=== PATIENT | female | born 1960 | race Caucasian/White ===

== ENCOUNTER 2016-06-11 15:22 | Inpatient (IN) | payer OTHER ==
--- NOTE | ~2016-06-11 | US77 ---
[facility] A Service of [facility] RADIOLOGY TEXT RESULTS PATIENT: AYAN ZAPIEN LOCATION: [facility] : 58 UNIT #: [id number] AGE: [address]: TONI MINER MD SEX: F ORDER DR: [id number] [facility] [address] [facility]. [place], [place] [address] [id number] I MR#: [id number] Acc #: [id number] NAME: AYAN ZAPIEN : 1960 SEX: F STUDY DATE/TIME: 06/12/2016 11:21 UNIT: C3A PCU ROOM: [facility] STUDY DESCRIPTION: US Kidney Bilateral Complete Attending Physician: Toni Miner M.D. Ordering Physician: Ifeoma Abernathy M.D. Primary Care Physician: Rodrigo Pak M.D. MEDICAL IMAGING REPORT This report is preliminary unless electronic signature is present EXAM Bilateral renal ultrasound, 06/12/2016. HISTORY 56-year-old female hospital inpatient with acute kidney injury. TECHNIQUE Dawson-scale ultrasound imaging of both kidneys and urinary bladder. COMPARISON Noncontrast CT abdomen/pelvis yesterday. FINDINGS Diffusely echo-dense renal parenchyma is noted which may be acute or chronic. This is most frequently associated with medical renal disease. There is no evidence of urinary obstruction. No visible nephrolithiasis, renal mass or perinephric fluid collection. Renal length measures at least 9.4 cm on the right and about 12.1 cm on the left. The urinary bladder is negative. IMPRESSION Diffusely echogenic renal parenchyma bilaterally which may be associated with acute or chronic medical renal disease. There is no evidence of urinary obstruction. Dictated by... Ramirez Perez M.D. THIS IS AN ELECTRONICALLY VERIFIED REPORT Ramirez Perez M.D. at 06/13/2016 8:40 AM [facility] A Service of [facility] RADIOLOGY TEXT RESULTS PATIENT: AYAN ZAPIEN LOCATION: [facility] : 58 UNIT #: [id number] AGE: [address]: TONI MINER MD SEX: F ORDER DR: LE/wendie TD: 06/12/2016 19:32 JOB #: [id number] MEDICAL IMAGING REPORT COPY
--- NOTE | ~2016-06-11 | EKG ---
PATIENT: AYAN ZAPIEN UNIT #: [id number] Ventricular Rate: 85 BPM Atrial Rate: 85 BPM P-R Interval: 174 ms QRS Duration: 72 ms Q-T Interval: 370 ms QTC Calculation(Bezet): 440 ms P [place]: 50 degrees Calculated R [place]: 55 degrees Calculated T [place]: 58 degrees Diagnosis Line: Normal sinus rhythm Diagnosis Line: Low voltage QRS Diagnosis Line: Borderline ECG Diagnosis Line: When compared with ECG of 06-JUN-2015 20:40, Diagnosis Line: ST no longer depressed in Inferior leads Diagnosis Line: T wave inversion no longer evident in Inferior Diagnosis Line: leads Diagnosis Line: Confirmed by TRISTA LOONEY MD ([id number]) on Diagnosis Line: 06/12/2016 10:45:29 PM INTERPRETING MD: JENY
--- NOTE | ~2016-06-11 | TOC ---
Unit #: [id number] #: [id number] Patient: AYAN ZAPIEN [id number] [facility]. [place], [place] [address] [id number] I MR#: [id number] NAME: AYAN ZAPIEN. ROOM: 240 Age: 56 Sex: F Admission Date: 06/11/2016 : 1960 Attending Physician: Ifeoma Abernathy M.D. Primary Care Physician: Rodrigo Pak M.D. TRANSFER OF CARE SUMMARY ADDENDUM PRINCIPAL DIAGNOSES 1. Right retroperitoneal hematoma following right renal biopsy. 2. Acute blood loss anemia status post transfusion of four units of packed RBCs. 3. Hypertension, uncontrolled. 4. Membranoproliferative glomerulonephritis. 5. Acute tubular necrosis. 6. Constipation. TOWER HAND Dr. Sunshine, Urology. PROCEDURES 1. Right renal biopsy on June 17, 2016. 2. Right renal angiogram, on June 17, 2016, without evidence of pseudoaneurysm or AV fistula. Diminished perfusion in the right kidney noted. 3. CT scan of abdomen and pelvis, on June 17, 2016, with a large retroperitoneal hematoma measuring 8.7 x 3.8 cm. There is free fluid within the pelvis noted. Small bilateral pleural effusions, right greater than left, noted. 4. KUB, on June 20, 2016, with gaseous distension of the colon greatest in the transverse colon. Prior cholecystectomy noted. 5. Placement of tunnel catheter. HOSPITAL COURSE Following last dictation, later that day, the patient had a repeat hemoglobin done given she had just undergone a renal biopsy. This hemoglobin was found to be significantly low at 6.6 and the patient's hypotension, as noted, in last dictation, was likely secondary to acute hemorrhage. She was emergently sent for CT scan of the abdomen and pelvis in Radiology and subsequently underwent an angiogram of the renal system but did not require any intervention. Following transfusion, the patient's hemoglobin has remained relatively stable, though she has required another two units likely secondary to a combination of still her large retroperitoneal hematoma in combination with her chronic kidney disease. Blood pressure since that time has remained stable and the patient was transferred to med/surg. The patient has done well otherwise. Blood pressure has been, for the most part, reasonably well controlled. Initial renal biopsy from [place] is indicating a membranoproliferative glomerulonephritis in Unit #: [id number] #: [id number] Patient: AYAN ZAPIEN addition to AT. Further testing for an autoimmune source of her renal disease is pending including a viral hepatitis panel and an anti-double stranded DNA. At this point, the patient is going to continue on intermittent hemodialysis as an outpatient per Dr. Dia. I will note the patient has completed her course of treatment for her colitis and her diarrhea has resolved and she has completed her antibiotic course for her pneumonia. She is significantly weak and will be followed by home health for physical and occupational therapy. DISCHARGE CONDITION Stable. DISCHARGE STATUS Discharged to home with home health for PT, OT and blood pressure monitoring. DISCHARGE MEDICATIONS 1. Flonase 0.05% nasal spray two sprays per nostril daily. 2. Zoloft 100 mg b.i.d. 3. Zyrtec 10 mg daily. 4. Benadryl 25 mg each evening. 5. Xanax 0.5 mg p.o. t.i.d. p.r.n. for anxiety. 6. Norvasc 10 mg p.o. daily. 7. Lasix 40 mg one and one-half tablets p.o. b.i.d. 8. Lipitor 20 mg at bedtime. 9. Clonidine 0.3 mg p.o. t.i.d. 10. Hydralazine 100 mg p.o. t.i.d. 11. Lortab 7.5/325 mg one tablet p.o. q.4 hours p.r.n. for pain. Number given-25. 12. PhosLo 667 mg two tablets p.o. t.i.d. with meals. 13. Calcium carbonate plus vitamin D 600 mg p.o. b.i.d. DISCHARGE INSTRUCTIONS 1. The patient was instructed to follow a Heart Healthy, low salt diet. 2. She can increase her activity as tolerated. 3. She will continue hemodialysis at [facility]. She will be Monday, , Monday at 7 a.m. with the first treatment on June 23 at 6:30 a.m. 4. She is to refrain from any tobacco use. FOLLOWUP The patient will follow up with Dr. Dia as instructed. We will further evaluate electron microscopy results with Dr. Dia and further discuss whether she needs immunosuppression given she may have an underlying autoimmune disorder. Time spent on discharge today-33 minutes. Dictated by... Ifeoma Abernathy M.D. SORIN/luis TD: 06/23/2016 06:25 JOB #: [id number] Unit #: [id number] #: [id number] Patient: AYAN ZAPIEN TRANSFER OF CARE SUMMARY X Ifeoma Abernathy MD TRANSFER OF CARE SUMMARY
--- NOTE | ~2016-06-11 | A ---
[facility] Nutrition Therapy DATE: 06/21/16 Patient: AYAN ZAPIEN Physician: [id number] Address: [address] [place] [address] Room/Bed: [address] [place] [address], Zip: [place] [address] Admit Date: 06/11/16 Date of : 58 Height: 5 3 Weight: 195 88.7 NUTRITIONAL ASSESSMENT: REASON: Seen due to length of stay Admitting Dx: 56 y/o female admitted with ELI and espinoza colitis PMH: HTN, LE edema, chronic back pain, migraines, kiko Anthropometrics: Ht: 63", admission wt: 175 lbs, current wt: 195 lbs?, BMI: 31 Labs: Na 133, Creat 3.3, GFR 15.3, Phos 2.8 (06/19) Meds: Phoslo, Procrit, Os Griffin + D, Zofran, Furosemide I/O & Bowel function: LBM 06/20 Skin Integrity: Tunnel cath R chest, BUE bruising, 1-2+ edema noted Assessment: Chart reviewed, events noted. RD assessing due to length of stay, patient with ELI requiring HD, to get HD tomorrow. Outpatient HD arrangements have been completed. Weights have ranged from 175-219 lbs during admission. Decreased oral intake noted on H&P, patient is on a renal diet. Patient not in room at time of RD visit, Dr. Abernathy noted in chart yesterday that the patient is eating, unsure of exact current PO intake. Patient does have increased nutrient needs r/t hemodialysis. Also note that CT showed espinoza colitis at admission. Please see RD recs below, will follow. RD provided renal/low phos diet education materials to patient on 06/15/16 Dx: Increased nutrient needs r/t metabolic demand AEB on hemodialysis. Intervention: Nepro BID? Monitoring, Evaluation and Goals: 1. Adequate oral intake > 50-75% of meals. 2. Gradual weight loss towards a healthy BMI range while preventing micro/macronutrient deficiencies. 3. Labs WNL. Monitor: Per protocol, criteria to determine if above goals met Recommendations: [facility] Nutrition Therapy DATE: 06/21/16 Patient: AYAN ZAPIEN Physician: MONSERRAT Address: [address] [place] [address] HERVE Room/Bed: [address] [place] [address], Zip: [place] [address] Admit Date: 06/11/16 Date of : 58 Height: 5 3 Weight: 195 88.7 1. Continue renal diet, if patient's PO intake is inadequate consider changing diet to regular to liberalize food choices; patient's k/phos have been WNL. Fluids per MD noting hyponatremia. 2. If PO intake is < 50% of meals please order Nepro shakes BID to help meet increased protein needs. Reinforce increased protein needs prior to discharge as the patient will require outpatient HD. 3. Check Phos with next lab draw. 4. Monitor weight. 5. Patient previously given diet education materials on renal/low phos diet. RD will follow hospital course Mild nutrition risk Respectfully, Yoana Guidry RD, LD Food and Nutrition[facility] Services [facility] cc: client file
--- NOTE | ~2016-06-11 | CT134 ---
[facility] A Service of [facility] & [facility] RADIOLOGY TEXT RESULTS PATIENT: AYAN ZAPIEN LOCATION: C2A 240-01 : 58 UNIT #: [id number] AGE: [address]: Ifeoma Abernathy MD SEX: F ORDER DR: [id number] [facility]. [place], [place] [address] [id number] I MR#: [id number] Acc #: [id number] NAME: AYAN ZAPIEN : 1960 SEX: F STUDY DATE/TIME: 06/17/2016 8:17 UNIT: [facility] ROOM: 240 STUDY DESCRIPTION: CT Guide Attending Physician: Ifeoma Abernathy M.D. Ordering Physician: Justa Dia M.D. Primary Care Physician: Rodrigo Pak M.D. MEDICAL IMAGING REPORT This report is preliminary unless electronic signature is present REVISED REPORT SEE ADDENDUM EXAM CT guided renal biopsy INDICATIONS Acute renal failure. Patient has a history of nephrotic syndrome. PROCEDURE This CT exam was performed with one or more of the following radiation dose reduction techniques: Automatic exposure control, adjustment of mA and/or kV according to patient size, and iterative reconstruction. The risks, benefits, and alternatives to the procedure were explained to the patient, and signed, informed consent was obtained. She was placed prone on the CT scanner gantry, preliminary CT scan was performed through the region of interest and appropriate site overlying the patient's right kidney was selected, the overlying skin was marked and the patient was prepped and draped in the usual sterile fashion. Of note, the patient's kidneys appear hyperattenuating likely reflecting chronic medical renal disease. Skin and subcutaneous tissues were anesthetized with buffered lidocaine. Anesthesia needle was left in place. Repeat CT scan confirmed appropriate position of the needle. At this point, a 17-gauge coaxial needle was advanced into the inferior pole of the right kidney. Final CT scan confirmed appropriate position of the needle within the periphery of the kidney. At this point, 3 core samples were obtained using an 18-gauge BioPince biopsy gun. Needle was then removed and manual pressure was applied until hemostasis was obtained. The patient tolerated the procedure well. There were no immediate complications, however, the patient subsequently became hypotensive and a repeat CT scan did show a perinephric hematoma. She underwent right renal angiogram, which was dictated separately. [facility] A Service of [facility] RADIOLOGY TEXT RESULTS PATIENT: AYAN ZAPIEN LOCATION: [facility] : 58 UNIT #: [id number] AGE: [address]: Ifeoma Abernathy MD SEX: F ORDER DR: CAPRI Technically successful core-needle biopsy of the patient's right kidney. CT was used during the procedure and permanent images were saved. Dictated by... Christina Whitney M.D. THIS IS AN ELECTRONICALLY VERIFIED REPORT Christina Whitney M.D. at 06/21/2016 9:17 AM AFF/psc TD: 06/19/2016 20:12 JOB #: [id number] ADDENDUM Please note she did receive conscious sedation consisting of 4 mg of Versed and 150 mcg fentanyl, and continuous monitoring was provided throughout the procedure JOB #: [id number] Dictated by... Christina Whitney M.D. THIS IS AN ELECTRONICALLY VERIFIED REPORT Christina Whitney M.D. at 06/30/2016 1:16 PM AFF/psc TD: 06/19/2016 20:33 JOB #: [id number] CC: Sovera/invision Please Delete MEDICAL IMAGING REPORT COPY
--- NOTE | ~2016-06-11 | XA93 ---
[facility] A Service of [facility] & [facility] RADIOLOGY TEXT RESULTS PATIENT: AYAN ZAPIEN LOCATION: C2A 240-01 : 58 UNIT #: [id number] AGE: [address]: Ifeoma Abernathy MD SEX: F ORDER DR: [id number] [facility] [address] [facility]. [place], [place] [address] [id number] I MR#: [id number] Acc #: [id number] NAME: AYAN ZAPIEN : 1960 SEX: F STUDY DATE/TIME: 06/20/2016 15:24 UNIT: C2A ROOM: 240 STUDY DESCRIPTION: XA CVC Tunneled WO Pump/Port Attending Physician: Ifeoma Abernathy M.D. Ordering Physician: Ifeoma Abernathy M.D. Primary Care Physician: Rodrigo Pak M.D. MEDICAL IMAGING REPORT This report is preliminary unless electronic signature is present EXAM Tunneled dialysis catheter insertion, 06/20/2016. HISTORY IV access needed, renal failure. PROCEDURE Using real-time ultrasound guidance, full standard sterile technique including sterile preparation, barrier draping, caps, gowns, gloves and masks; right internal jugular vein was accessed with real-time sterile ultrasound guidance both to guide venous access and confirm vessel patency. Using Seldinger technique, the jugular vein was accessed and the tract was dilated. A peel-away sheath was inserted. Tunnel was then created from the right upper chest following local anesthesia to the venotomy site, and the dialysis catheter pulled through the tunnel and then advanced via the peel-away sheath. The venotomy site was closed with a deep fascial suture and n-butyl cyanoacrylate flow. The hub of the catheter was stitched in place. There were no complications and the patient tolerated the procedure well. The catheter was flushed with saline and packed with heparin solution. There were no complications. Total fluoro time 0.4 minutes, single fluoroscopic spot image. IMPRESSION Successful ultrasound and fluoroscopically guided insertion of a tunneled right IJ dialysis catheter without complication. Dictated by... Clarence Scanlon M.D. THIS IS AN ELECTRONICALLY VERIFIED REPORT Clarence Scanlon M.D. at 06/27/2016 5:[address] [facility] A Service of [facility] & [facility] RADIOLOGY TEXT RESULTS PATIENT: AYAN ZAPIEN LOCATION: [place] [address] : 58 UNIT #: [id number] AGE: [address]: Ifeoma Abernathy MD SEX: F ORDER DR: LEONA/chilo TD: 06/25/2016 11:19 JOB #: [id number] MEDICAL IMAGING REPORT COPY
--- NOTE | ~2016-06-11 | CO ---
Unit #: [id number] #: [id number] Patient: AYAN ZAPIEN [id number] [address] [id number] I MR#: [id number] NAME: AYAN ZAPIEN ROOM: 303 Age: 56 Sex: F Admission Date: 06/11/2016 : 1960 Attending Physician: Ifeoma Abernathy M.D. Primary Care Physician: Rodrigo Pak M.D. Consultation Date: 06/18/2016 CONSULTATION REPORT REASON FOR CONSULTATION Renal trauma; right renal biopsy. HISTORY OF PRESENT ILLNESS Ms. Zapien is a 56-year-old female with a history of hypertension and migraines who presented to the ER with nausea, vomiting and diarrhea. She was found to have acute kidney injury that progressed and ultimately required hemodialysis. She has been managed by the nephrology team. Ultimately, she underwent right renal biopsy. She underwent this biopsy on June 17, 2016. Postoperatively she developed hypotension, and her hemoglobin was noted to be markedly low. She was taken emergently to the IR suite where angiogram was performed, but they did not find an acute bleed that required embolization. She has been managed expectantly since that time. She is currently on bedrest. PAST MEDICAL HISTORY 1. Acute kidney injury, hemodialysis dependent. 2. Pancolitis. 3. Anion gap metabolic acidosis. 4. Pneumonia. 5. Hypocalcemia. 6. Vitamin D deficiency. 7. History of migraines. 8. History of hypertension. 9. Chronic back pain. PAST SURGICAL HISTORY 1. Hysterectomy. 2. Cholecystectomy. 3. Tonsillectomy. 4. Right shoulder surgery. 5. Resection of hepatitic cyst. HOME MEDICATIONS 1. Benadryl. 2. Norvasc. 3. Aspirin. 4. Benazepril. 5. Hydrochlorothiazide. 6. Lipitor. 7. Baclofen. 8. Compazine. 9. Lortab. Unit #: [id number] #: [id number] Patient: AYAN ZAPIEN 10. Xanax. 11. Sertraline. PHYSICAL EXAMINATION VITAL SIGNS: Temp 99.7, pulse 80 to 100, BP 104-145/60-98. Satting well on room air. Oliguric. GENERAL: Awake and alert. No apparent distress. Oriented x3. HEENT: Pupils are equal, round and responsive to light. Head atraumatic. NECK: Supple. RESPIRATORY: Normal effort. No use of accessory muscles. ABDOMEN: Soft, normal appearing. : Becerra in place. Urine clear. DIAGNOSTIC STUDIES LABS: Creatinine 5.5. White blood cell count 13.9, hemoglobin 8. ASSESSMENT This is a 56-year-old female who developed hypotension and change in mental status after right renal biopsy. Per the patient, angiography was performed and did not demonstrate arterial bleeding that required embolization. A urology consultation was requested to assist with management of renal trauma. RECOMMENDATION/PLAN 1. Recommend bedrest for 48 hours. 2. Continue Becerra catheter. 3. Continue to trend hemoglobin. 4. Will continue to follow. Dictated by... Dl Burnette M.D. XOCHITL/saad TD: 06/18/2016 14:41 JOB #: [id number] CONSULTATION REPORT X X CONSULTATION REPORT
--- NOTE | ~2016-06-11 | XA59 ---
[facility] A Service of [facility] & [facility] RADIOLOGY TEXT RESULTS PATIENT: AYAN ZAPIEN LOCATION: A 240-01 : 58 UNIT #: [id number] AGE: [address]: Ifeoma Abernathy MD SEX: F ORDER DR: [id number] [facility]. [place], [place] [address] [id number] I MR#: [id number] Acc #: [id number] NAME: AYAN ZAPIEN : 1960 SEX: F STUDY DATE/TIME: 06/17/2016 8:17 UNIT: [facility] ROOM: [facility] STUDY DESCRIPTION: XA BX Perc Renal Attending Physician: Ifeoma Abernathy M.D. Ordering Physician: Justa Dia M.D. Primary Care Physician: Rodrigo Pak M.D. MEDICAL IMAGING REPORT This report is preliminary unless electronic signature is present EXAM XA BX perc renal HISTORY Acute renal failure. Patient has a history of nephrotic syndrome. FINDINGS Please see CT GUIDE report for combined text results. Dictated by... Christina Whitney M.D. THIS IS AN ELECTRONICALLY VERIFIED REPORT Christina Whitney M.D. at 06/21/2016 9:22 AM AFF/psc TD: 06/19/2016 20:21 JOB #: [id number] MEDICAL IMAGING REPORT COPY
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
--- NOTE | ~2016-06-11 | CT4 ---
[facility] A Service of [facility] RADIOLOGY TEXT RESULTS PATIENT: AYAN ZAPIEN LOCATION: [facility] : 58 UNIT #: [id number] AGE: [address]: Ifeoma Abernathy MD SEX: F ORDER DR: [id number] [facility] [address] [place], [place] [address] [id number] I MR#: [id number] Acc #: [id number] NAME: AYAN ZAPIEN. : 1960 SEX: F STUDY DATE/TIME: 06/11/2016 18:17 UNIT: A PCU ROOM: [facility] STUDY DESCRIPTION: CT Abd and Pelv Wo Cont Attending Physician: Sarah Miner M.D. Ordering Physician: Santy Meyers M.D. Primary Care Physician: Rodrigo Pak M.D. MEDICAL IMAGING REPORT This report is preliminary unless electronic signature is present EXAM CT of abdomen and pelvis with oral contrast and without IV contrast. DATE OF EXAM 06/11/2016 HISTORY Nausea, diarrhea and cramping for 2 weeks. TECHNIQUE NOTE: This CT exam was performed with one or more of the following radiation dose reduction techniques: automatic exposure control, adjustment of mA and/or kV according to patient size, and iterative reconstruction. FINDINGS CT abdomen and pelvis was performed with oral contrast and without IV contrast. CT ABDOMEN: There is a very small left pleural effusion and there is mild subsegmental atelectasis in the posterior left lower lobe, inferior lingula and medial right middle lobe. Mild diffuse wall thickening of the colon. No bowel dilatation. The liver, spleen, pancreas, kidneys, and adrenal glands are unremarkable. No ascites. Normal caliber abdominal aorta. No adenopathy. CT PELVIS: Small amount of free fluid in the pelvis. Mild diffuse wall thickening of the sigmoid colon and rectum. Mild sigmoid diverticulosis. No bowel dilatation. No loculated fluid collection. Urinary bladder is normal. Hysterectomy. IMPRESSION [facility] A Service of [facility] RADIOLOGY TEXT RESULTS PATIENT: AYAN ZAPIEN LOCATION: C3A : 58 UNIT #: [id number] AGE: [address]: Ifeoma Abernathy MD SEX: F ORDER DR: 1. Mild diffuse wall thickening of the colon and rectum suggesting mild diffuse infectious or inflammatory proximal colitis. 2. No bowel obstruction. 3. Minimal free fluid in the pelvis. 4. Normal appendix. 5. Very small left pleural effusion with mild subsegmental atelectasis in both lung bases. Dictated by... Mukund Jaramillo M.D. THIS IS AN ELECTRONICALLY VERIFIED REPORT Mukund Jaramillo M.D. at 06/13/2016 3:04 PM SALOME/christian TD: 06/11/2016 21:28 JOB #: [id number] MEDICAL IMAGING REPORT COPY
--- NOTE | ~2016-06-11 | HP ---
Unit #: [id number] #: [id number] Patient: AYAN ZAPIEN [id number] [address] [place], [place] [address] [id number] MR#: [id number] NAME: AYAN ZAPIEN. ROOM: 303 Age: 56 Sex: F Admission Date: 06/11/2016 : 1960 Attending Physician: Sarah Miner M.D. Primary Care Physician: Rodrigo Pak M.D. HISTORY AND PHYSICAL CHIEF COMPLAINT Nausea, vomiting, and diarrhea for two weeks. HISTORY OF PRESENT ILLNESS The patient is a 56-year-old female, with a past medical history of migraine, hypertension, lower extremity edema, and chronic back pain presented to the emergency room with the nausea, vomiting, and diarrhea for the last two weeks. The patient was having nausea and vomiting for the last two weeks with diarrhea and the blood in the stool. The patient was told to see GI by the primary care physician and has been unable to followup. She has tried (1) and Compazine but without any relief. The patient has decreased oral intake also along with the nausea and vomiting. The patient also complains of subjective fevers and denies any chills. PAST MEDICAL HISTORY 1. History of hypertension. 2. Migraines. 3. Lower extremity edema. 4. Chronic back pain. PAST SURGICAL HISTORY 1. Hysterectomy. 2. Cholecystectomy. 3. Tonsillectomy. 4. Right shoulder surgery. 5. Hepatic tumor, cyst removed. ALLERGIES Imitrex, Bystolic, morphine, and erythromycin. HOME MEDICATIONS She is on: 1. Benadryl 2. Norvasc 3. Aspirin 4. Benazepril 5. Hydrochlorothiazide 6. Lipitor 7. Baclofen 8. Compazine 9. Lortab 10. Xanax 11. Sertraline Unit #: [id number] #: [id number] Patient: AYAN ZAPIEN 12. Mucinex 13. Potassium 14. Calcium SOCIAL HISTORY She smokes a pack of cigarettes daily and denies any alcohol or illicit drug abuse. FAMILY HISTORY Father has drug abuse in the family. REVIEW OF SYSTEMS Fourteen point review of systems was performed and only pertinent positive as described above, and others are negative. PHYSICAL EXAMINATION GENERAL: The patient is lying on the bed, not in acute distress. VITALS: Temperature 98.5, pulse rate 88, respiratory 16, and blood pressure 220/100, satting 100% at room air. HEENT: Head: Atraumatic and normocephalic. Pupils equal, round, reactive to light and accommodation. Dry mucous membranes. NECK: Supple. No jugular venous distention. LUNGS: Clear to auscultation bilaterally, no rhonchi, and no wheezing. HEART: Regular rate and rhythm. ABDOMEN: Soft, positive bowel sounds. Lower abdominal tenderness bilaterally. EXTREMITIES: No cyanosis, no clubbing. NEURO: Awake, alert, and oriented, no gross motor deficit. PSYCH: Mood and affect are appropriate. DIAGNOSTIC STUDIES LABORATORY DATA: Glucose 93, BUN 73, creatinine of 10.7, sodium 131, potassium 3.9, chloride 106, bicarb 14, calcium 7.2, total protein 5.7, albumin 2.2. AST 16, ALT 11, alkaline phosphatase 100, lipase 84. White blood count 14.7, hemoglobin 12.3, hematocrit 36.5, platelets 218, neutrophils 77.3. IMAGING: CT of the abdomen shows mild espinoza colitis. ASSESSMENT/PLAN 1. Espinoza colitis. 2. Acute kidney injury. 3. Hypertension, uncontrolled. 4. Nausea, vomiting, and diarrhea. Plan to admit the patient to the inpatient telemetry, continue with the IV antibiotics with Rocephin and Flagyl, and the patient will have renal consult and continue with IV replacement 150 mL per hour, and repeat the labs again in the morning, and further recommendations to follow. Dictated by Tano Elliott TD: 06/12/2016 10:38 Unit #: [id number] #: [id number] Patient: AYAN ZAPIEN JOB #: [id number] HISTORY AND PHYSICAL X X HISTORY AND PHYSICAL
--- NOTE | ~2016-06-11 | CR63 ---
[facility] A Service of [facility] RADIOLOGY TEXT RESULTS PATIENT: AYAN ZAPIEN LOCATION: [facility] 303- : 58 UNIT #: [id number] AGE: [address]: Ifeoma Abernathy MD SEX: F ORDER DR: [id number] [facility] [address] [place], [place] [address] [id number] I MR#: [id number] Acc #: [id number] NAME: AYAN ZAPIEN : 1960 SEX: F STUDY DATE/TIME: 06/15/2016 14:37 [facility] ROOM: 303 STUDY DESCRIPTION: CR Chest 2 View Attending Physician: Ifeoma Abernathy M.D. Ordering Physician: Ifeoma Abernathy M.D. Primary Care Physician: Rodrigo Pak M.D. MEDICAL IMAGING REPORT This report is preliminary unless electronic signature is present EXAM PA and lateral chest DATE 06/15/2016 at 14:37 HISTORY Shortness of breath and cough since June 11, 2016. Possible pneumonia. COMPARISON AP portable chest 06/06/2015 FINDINGS Airspace disease is present in the bilateral lower lobes, right slightly greater than left. There are probable trace layering bilateral pleural effusions. Upper lung zones appear relatively well-aerated. Stable heart size within normal limits. Right neck approach dual-lumen catheter distal tip extends to the upper right atrial level. No pneumothorax is visible. IMPRESSION 1. Right greater than left bibasilar airspace disease, corresponding to the supplied clinical history of suspected possible pneumonia. Radiographic followup to document resolution is recommended. 2. Suspected small layering bilateral pleural effusions. Dictated by... Albania Almeida M.D. THIS IS AN ELECTRONICALLY VERIFIED REPORT Albania Almeida M.D. at 06/16/2016 2:40 PM [facility]/to TD: 06/15/2016 17:32 [facility] A Service of [facility] RADIOLOGY TEXT RESULTS PATIENT: AYAN ZAPIEN LOCATION: [facility] 303-01 : 58 UNIT #: [id number] AGE: [address]: Ifeoma Abernathy MD SEX: F ORDER DR: JOB #: [id number] MEDICAL IMAGING REPORT COPY
--- NOTE | ~2016-06-11 | CT4 ---
[facility] A Service of [facility] RADIOLOGY TEXT RESULTS PATIENT: AYAN ZAPIEN LOCATION: [facility] 240-01 : 58 UNIT #: [id number] AGE: [address]: Ifeoma Abernathy MD SEX: F ORDER DR: [id number] [facility] [address] [facility]. [place], [place] [address] [id number] I MR#: [id number] Acc #: [id number] NAME: AYAN ZAPIEN : 1960 SEX: F STUDY DATE/TIME: 06/17/2016 15:30 UNIT: C3A PCU ROOM: 303 STUDY DESCRIPTION: CT Abd and Pelv Wo Cont Attending Physician: Ifeoma Abernathy M.D. Ordering Physician: Ifeoma Abernathy M.D. Primary Care Physician: Rodrigo Pak M.D. MEDICAL IMAGING REPORT This report is preliminary unless electronic signature is present EXAM CT of the abdomen and pelvis without contrast HISTORY Ms. Zapien is a 56-year lady who underwent a right renal biopsy today. She became hypotensive several hours after the biopsy and dropped her hemoglobin to 6.6. She has been referred for evaluation for possible perinephric hemorrhage. TECHNIQUE Axial CT images were obtained from the dome of the diaphragm through the symphysis pubis. No oral or intravenous contrast material was administered. This CT exam was performed with one or more of the following radiation dose reduction techniques: automatic control, adjustment of mA and/or kV according to patient size, and iterative reconstruction. FINDINGS Patient is noted to have bilateral pleural effusions right greater than left, the right pleural effusion is new when compared to an exam from 06/11/2016 and the left pleural effusion has increased. This patient has a large retroperitoneal hematoma. This measures up to 8.7 x 3.8 cm. Patient is also noted to have some free fluid within the pelvis although it is low in attenuation and may simply reflect some simple fluid. Additional small amount of free fluid is seen adjacent to the liver. Liver is unremarkable. Gallbladder is surgically absent. Calcified granulomata are seen within the spleen. There is a small hiatal hernia proximal small bowel is within normal limits as is the pancreas. Left kidney is slightly hyperdense. Clinical significance is uncertain but certainly correlation with the patient's biopsy results is suggested. There is atherosclerotic involvement of the abdominal aorta which [facility] A Service of [facility] RADIOLOGY TEXT RESULTS PATIENT: AYAN ZAPIEN LOCATION: [facility] [address] : 58 UNIT #: [id number] AGE: [address]: Ifeoma Abernathy MD SEX: F ORDER DR: continues into the iliac vessels. Becerra catheter is present within the urinary bladder. Patient has colonic diverticulosis without any evidence of diverticulitis. Patient has extensive body wall edema which has increased when compared to the prior study. Review of bony windows does not demonstrate any aggressive osseous abnormalities. There is some subcutaneous gas seen within the right flank posteriorly related to recent biopsy site. There is discogenic degenerative disease most pronounced at L2-L3. IMPRESSION 1. This patient has a large retroperitoneal hematoma measuring up to 8.7 x 3.8 cm. This is secondary to today's biopsy. This was discussed with Dr. Abernathy immediately following the CT scan and at this point, we will plan on an angiogram to assess for pseudoaneurysm or arteriovenous fistula. 2. Patient is noted to have some free fluid within the pelvis, particularly along the right pelvic sidewall. This appears to be simple fluid but certainly a hemorrhagic component should be suspected. 3. Small bilateral pleural effusions right greater than left. The right pleural effusion is new when compared to prior study. Left pleural effusion has increased. 4. Both kidneys are hyperdense which may reflect underlying chronic medical renal disease. 5. Please see the body of the report for any other additional incidental findings. Dictated by... Christina Whitney M.D. THIS IS AN ELECTRONICALLY VERIFIED REPORT Christina Whitney M.D. at 06/21/2016 4:44 PM AFF/rnr TD: 06/18/2016 01:28 JOB #: [id number] MEDICAL IMAGING REPORT COPY
--- NOTE | ~2016-06-11 | XA75 ---
[facility] A Service of [facility] RADIOLOGY TEXT RESULTS PATIENT: AYAN ZAPIEN LOCATION: C3A - : 58 UNIT #: [id number] AGE: [address]: Ifeoma Abernathy MD SEX: F ORDER DR: [id number] [facility] [address] [place], [place] [address] [id number] I MR#: [id number] Acc #: [id number] NAME: AYAN ZAPIEN : 1960 SEX: F STUDY DATE/TIME: 06/14/2016 14:18 UNIT: C3A PCU ROOM: 303 STUDY DESCRIPTION: XA CVC Non-Tunnel Attending Physician: Ifeoma Abernathy M.D. Ordering Physician: Justa Dia M.D. Primary Care Physician: Rodrigo Pak M.D. MEDICAL IMAGING REPORT This report is preliminary unless electronic signature is present EXAM Shiley catheter placement with ultrasound and fluoroscopic guidance, 06/14/2016 HISTORY Dialysis needed. TECHNIQUE The procedure was explained the patient including risks, benefits and complications. Informed consent was obtained and a formal time-out procedure was utilized. Full barrier sterile technique was employed via standard protocol. Using full barrier sterile technique and following local anesthesia with 1% Xylocaine, the right internal jugular vein was punctured with ultrasound guidance. Ultrasound was used to confirm vessel patency which was confirmed and permanent ultrasound images were recorded. An 0.035 guidewire was passed through the micropuncture sheath and the tract was dilated. A double lumen Shiley catheter was then placed over the guidewire with the tip positioned in the upper right atrium. The line was sutured in place with 2-0 silk sutures and a sterile dressing was applied. Total fluoroscopy time 0.1 minute. 1 spot film obtained. IMPRESSION Successful placement of a Shiley catheter via the right internal jugular vein with ultrasound and fluoroscopic guidance. Catheter tip is in satisfactory position. Dictated by... Lincoln Mac M.D. THIS IS AN ELECTRONICALLY VERIFIED REPORT Lincoln Mac M.D. at 06/15/2016 4:42 PM [facility] A Service of [facility] RADIOLOGY TEXT RESULTS PATIENT: AYAN ZAPIEN LOCATION: [facility] 303-01 : 58 UNIT #: [id number] AGE: [address]: Ifeoma Abernatyh MD SEX: F ORDER DR: CAREN/christin TD: 06/14/2016 21:22 JOB #: [id number] MEDICAL IMAGING REPORT COPY
--- NOTE | ~2016-06-11 | XA25 ---
[facility] A Service of [facility] RADIOLOGY TEXT RESULTS PATIENT: AYAN ZAPIEN LOCATION: C2A 240-01 : 58 UNIT #: [id number] AGE: [address]: Ifeoma Abernathy MD SEX: F ORDER DR: [id number] [facility] [address] [facility]. [place], [place] [address] [id number] I MR#: [id number] Acc #: [id number] NAME: AYAN ZAPIEN : 1960 SEX: F STUDY DATE/TIME: 06/17/2016 16:26 UNIT: A ROOM: 240 STUDY DESCRIPTION: XA Angio Renal Unilateral W WO Attending Physician: Ifeoma Abernathy M.D. Ordering Physician: Ifeoma Abernathy M.D. Primary Care Physician: Rodrigo Pak M.D. MEDICAL IMAGING REPORT This report is preliminary unless electronic signature is present EXAM Right renal angiogram Ms. Zapien is a 56-year-old lady who underwent a renal biopsy on June 17, 2016. Initially following the procedure she did well. However, shortly after the procedure she subsequently developed hypotension requiring a MET team alert. Subsequent hemoglobin was found to be 6.6, which had diminished from her Preprocedural value of over 8. She has subsequently been referred for renal angiogram. The procedure was explained to the patient including risks, potential complications and history of alternative forms of treatment. Informed consent was obtained prior to initiating the procedure. A formal time-out procedure was performed. Using all elements of maximal sterile barrier technique including hand hygiene, caps, sterile gowns and gloves and masks. The right groin was prepped with 2% Chlorhexidine for continuous antiseptic and covered with a large sterile sheet. Real-time sterile ultrasound guidance was used to localize the common femoral artery which was found to be patent. Hard copy ultrasound image was obtained after local anesthesia with 1% Xylocaine. The artery was punctured using real-time sterile ultrasound guidance. An 0.018 guidewire was advanced into the right common femoral artery. Micropuncture sheath was placed and a J-wire was advanced into the aorta. 5-Croatian sheath was placed. At this point a C2 catheter was advanced over the wire and was used to select the right renal artery. Right renal angiogram was performed. This patient is noted to have diminished parenchymal enhancement of the right kidney. There is no evidence of stenosis. No pseudoaneurysm or arteriovenous fistula was identified. Again however, opacification of the right kidney was very limited, suggesting chronic medical renal disease. The catheter was STS. [facility] A Service of [facility] RADIOLOGY TEXT RESULTS PATIENT: AYAN ZAPIEN LOCATION: C2A 240-01 : 58 UNIT #: [id number] AGE: [address]: Ifeoma Abernathy MD SEX: F ORDER DR: subsequently advanced more distally into the right renal artery to select a branch supplying the inferior pole of the right kidney, again an angiogram was performed and again there was no evidence of pseudoaneurysm or arteriovenous fistula. Patient does have some diminished enhancement in particular overlying the inferior pole of the right kidney likely reflecting adjacent hematoma. At this point the catheter was removed. Angiogram was performed through the sheath which showed a patent common femoral artery with no evidence of stenosis. At this point an Angio-Seal device was deployed with adequate hemostasis obtained. The patient tolerated the procedure well and there were no immediate complications. Total fluoroscopy time was 1 minute. The patient did received conscious sedation consisting of 3 mg of Versed and 100 mcg of fentanyl, and continous monitoring was provided during the procedure. A total of 29 fluoroscopic images were obtained. IMPRESSION Technically successful right renal angiogram as noted above. Please note there is no evidence of pseudoaneurysm or arteriovenous fistula. The patient does have markedly diminished perfusion of the right kidney suggesting chronic medical renal disease. In particular there was some diminished enhancement seen at the inferior pole right kidney likely reflecting some compression by her perinephric hematoma. Dictated by... Christina Whitney M.D. THIS IS AN ELECTRONICALLY VERIFIED REPORT Christina Whitney M.D. at 06/21/2016 4:43 PM AFF/hebert TD: 06/21/2016 09:55 JOB #: [id number] MEDICAL IMAGING REPORT COPY
--- NOTE | ~2016-06-11 | TOC ---
Unit #: [id number] #: [id number] Patient: AYAN ZAPIEN [id number] [address] [address] [id number] MR#: [id number] NAME: AYAN ZAPIEN ROOM: 303 Age: 56 Sex: F Admission Date: 06/11/2016 : 1960 Attending Physician: Ifeoma Abernathy M.D. Primary Care Physician: Rodrigo Pak M.D. TRANSFER OF CARE SUMMARY PRINCIPAL DIAGNOSES 1. Acute kidney injury, now requiring hemodialysis. 2. Pancolitis, resolving. 3. High anion gap metabolic acidosis secondary to uremia, now resolved. 4. Sepsis secondary to bibasilar pneumonia. 5. Hypocalcemia. 6. Hypokalemia. 7. Hypomagnesemia. 8. Hyperphosphatemia. 9. Anemia of renal failure. 10. Vitamin D deficiency. 11. Acute hypotension, multifactorial including fentanyl, Dilaudid and Lasix. 12. Severe protein malnutrition. 13. Hypertension. 14. Chronic back pain, maintained on narcotics. 15. History of migraine headache. CONSULTANTS Dr. Dia, nephrology. PROCEDURES 1. Right renal biopsy on May 20, 2016. Pathology currently pending. 2. CT of the head without contrast on June 06, 2015 which was normal. 3. Chest x-ray on June 06, 2015 with emphysematous change. 4. CT scan of abdomen and pelvis without contrast on June 11, 2016 with diffuse wall thickening of the colon and rectum suggesting infections or inflammatory colitis. No bowel obstruction. 5. Bilateral renal ultrasound on June 12, 2016 with echogenic renal parenchyma bilaterally. 6. Shiley catheter placement on June 14, 2016. 7. Chest x-ray on June 15, 2016 with right greater than left bibasilar airspace disease, small layering bilateral pleural effusion. CLINICAL HISTORY AND HOSPITAL COURSE Ms. Zapien is a nice 56-year-old female who presents to the emergency department with nausea, vomiting and diarrhea for two weeks. In the emergency department the patient was found to have a creatinine greater than 10. CT scan of the abdomen and pelvis revealed colitis. The patient was subsequently admitted. In regard to the patient's colitis, she was placed on empiric antibiotics Unit #: [id number] #: [id number] Patient: AYAN ZAPIEN and diarrhea has resolved. She will complete a course of Flagyl on June 18. Causative organism was not obtained. Clinically she is improved. In regard to the patient's elevated creatinine, Nephrology was consulted and patient was placed on IV fluids and nephrotoxics medications were held. Unfortunately the following morning the patient's creatinine had not improved and she developed significant metabolic acidosis. She was placed on bicarb-containing fluids and again Nephrology monitored. Unfortunately the next day creatinine worsened. Patient was increasingly symptomatic with nausea and vomiting and she emergently underwent Shiley placement and is now initiated intermittent hemodialysis. Immunologic studies have not completely returned but at this point are negative and patient underwent renal biopsy today. I will note post renal biopsy patient abruptly developed abrupt hypotension and decreased level of consciousness after fentanyl, Dilaudid and Lasix. She did not require any medication to increase blood pressure. She was awakened with sternal rub and blood pressure since that time has remained stable in the low 90s. I am going to monitor blood pressure today and perhaps slightly adjust her antihypertensives in the short term. We are also going to discontinue Dilaudid after discussion family indicates she had a similar adverse reaction in the past. Patient developed increasing rhonchi throughout hospitalization and developed a fever. Chest x-ray revealed pneumonia and this was consistent with clinical exam. She was placed on Rocephin and has had a decrease in her white blood cell count and improvement in her respiratory status. I am going to change her to Omnicef in the morning and she will complete a seven-day course of antibiotics. Patient has several electrolyte abnormalities due to her renal failure and these have been corrected on hemodialysis. The patient has also had significant hypertension requiring increasing doses of antihypertensives but again given things today I am going to monitor blood pressure closely and may require a decrease in antihypertensives. Further hospital course will be dictated as an addendum. Dictated by... Ifeoma Abernathy M.D. SORIN/shemar TD: 06/17/2016 15:21 JOB #: [id number] Unit #: [id number] #: [id number] Patient: AYAN ZAPIEN TRANSFER OF CARE SUMMARY X Ifeoma Abernathy MD X TRANSFER OF CARE SUMMARY
--- NOTE | ~2016-06-11 | CR7 ---
[facility] A Service of [facility] RADIOLOGY TEXT RESULTS PATIENT: AYAN ZAPIEN LOCATION: A 240-01 : 58 UNIT #: [id number] AGE: [address]: Ifeoma Abernathy MD SEX: F ORDER DR: [id number] [facility] [address]. [place], [place] [address] [id number] I MR#: [id number] Acc #: [id number] NAME: AYAN ZAPIEN : 1960 SEX: F STUDY DATE/TIME: 06/20/2016 21:32 UNIT: [facility] ROOM: 240 STUDY DESCRIPTION: CR Abdomen Single AP View Attending Physician: Ifeoma Abernathy M.D. Ordering Physician: Lincoln Sunshine M.D. Primary Care Physician: Rodrigo Pak M.D. MEDICAL IMAGING REPORT This report is preliminary unless electronic signature is present EXAM AP abdomen. DATE: 06/20/2016 at 21:32 HISTORY Acute renal insufficiency. Pancolitis. Vomiting, distension, diarrhea for 2 weeks. COMPARISON Acute abdominal series 02/18/2013 FINDINGS There is mild generalized gaseous distension predominantly of the colon greatest in the transverse segment. No abnormal small bowel dilation is seen. No pneumatosis or free air is identified on this supine study. Cholecystectomy changes are present. Diminished disc height is present eccentrically on the left at L2-3 with marginal osteophyte formation. IMPRESSION 1. Kgic-wm-mbxnixzq gaseous distension of the colon, greatest in the transverse colon. Findings are nonspecific and could represent changes related to clinically suspected colitis. However, there is no convincing evidence of large or small bowel obstruction. 2. Cholecystectomy. Dictated by... Albania Almeida M.D. THIS IS AN ELECTRONICALLY VERIFIED REPORT Albania Almeida M.D. at 06/21/2016 2:08 PM [facility]/hebert [facility] A Service of [facility] RADIOLOGY TEXT RESULTS PATIENT: AYAN ZAPIEN LOCATION: [facility] 240-01 : 58 UNIT #: [id number] AGE: [address]: Ifeoma Aebrnathy MD SEX: F ORDER DR: TD: 06/21/2016 09:50 JOB #: [id number] MEDICAL IMAGING REPORT COPY
[~2016-06-11 15:22] MED LIST: AFRIN NASAL SPR15 ML NS; ALEVE220 M1 PO; ALLERGY INJECTIONS; AMOXIL500 M1 PO; AUGMENTIN875 MG PO; BENADRYL PO; BENADRYL25 M1 PO; BENADRYL25 MG PO; ESGIC CAPSULE1 CAP PO; HCTZ; HYDROCODON-ACE1 EACH PO; IBUPROFEN600 MG PO; IBUPROFEN800 MG PO; K-DUR20 ME1 PO; LORTAB 7.5-5001 TAB PO; MOTRIN400 M1 PO; NAPROXEN PO; NASONEX17 GM; NO MEDICATIONS; PHENERGAN PO; PHENERGAN25 MG PO; POTASSIUM; PREDNISONE PO; PREMARIN PO; ROBAXIN500 MG PO; SKELAXIN PO; VISTARIL PO; VOLTAREN75 MG PO; WATER PILL; ZOFRANODT PO; ZYRTEC PO; ZYRTEC-D TABLE1 EACH PO
[2016-06-11 16:11] LABS: BASOPHIL# 0.2 X10e3 (0-0.3); DIFF IND NO; EOSINOPHIL% 0.2 % (0.0-7.0); HEMATOCRIT 36.5 % (35.0-45.0); HEMOGLOBIN 12.3 gm/dL (12.0-16.0); LYMPHOCYTE# 2.3 X10e3 (1.0-3.5); LYMPHOCYTE% 15.4 % (17.0-45.0); MEAN CELL VOLUME 82.8 FL (83-96); MEAN CORPUSCULAR HGB CONC 33.8 g/dL (30-36); MEAN PLATELET VOLUME 7.3 FL (6.5-11.5); MONOCYTE# 0.9 X10e3 (0-1.0); MONOCYTE% 6.1 % (3.0-12.0); NEUTROPHIL# 11.3 X10e3 (1.5-7.1); NEUTROPHIL% 77.3 % (40-75); PLATELET COUNT 218 X10e3 (140-420); RED BLOOD COUNT 4.41 X10e (3.90-5.30); RED CELL DISTRIBUTION WIDTH 14.4 % (11.0-15.5); WHITE BLOOD COUNT 14.7 X10e3 (4.0-10.5)
[2016-06-11 17:15] LABS: ALBUMIN SERUM 2.2 g/dL (3.5-5.0); BILIRUBIN, DIRECT 0.1 mg/dL (0.0-0.2); BILIRUBIN,INDIRECT 0.6 mg/dL (0.0-0.9); BILIRUBIN,TOTAL 0.7 mg/dL (0.2-2.0); BUN/CREATININE RATIO 6.82; CALCIUM SERUM 7.2 mg/dL (8.4-10.2); CREATININE SERUM 10.7 mg/dL (0.6-1.4); GLOM FILT RATE Estimated 3.9 mL/min (>60); POTASSIUM 3.9 mmol/L (3.5-5.1); PROTEIN TOTAL SERUM 5.7 g/dL (6.0-8.3)
[2016-06-11] MEDS ORDERED: POTASSIUM99 M1 PO (18:46)
[2016-06-11] MEDS ORDERED: CALCIUM 600 +1 EA12 PO (18:46)
[2016-06-11] MEDS ORDERED: ZYRTEC10 M1 PO (18:47)
[2016-06-11] MEDS ORDERED: SERTRALINE HCL100 M1 PO (18:47)
[2016-06-11] MEDS ORDERED: MUCINEX100 MG/BOX PO (18:52)
[2016-06-11] MEDS ORDERED: BENADRYL25 M1 PO (18:53)
[2016-06-11] MEDS ORDERED: AMLODIPINE BESYL5 MG PO (18:53)
[2016-06-11] MEDS ORDERED: ASPIRIN81 MG PO (18:54)
[2016-06-11] MEDS ORDERED: BENAZEPRIL-HCT1 EAC1 PO (18:54)
[2016-06-11] MEDS ORDERED: XANAX0.5 MG PO (18:55)
[2016-06-11] MEDS ORDERED: LIPITOR20 MG PO (18:55)
[2016-06-11] MEDS ORDERED: LORTAB 7.5-3251 EACH PO (18:57)
[2016-06-11] MEDS ORDERED: COMPAZINE5 MG PO (18:58)
[2016-06-11] MEDS ORDERED: LIORESAL10 MG PO (19:01)
[2016-06-11 20:21] LABS: URINE APPEARANCE CLOUDY; URINE BILIRUBIN NEG (NEG); URINE BLOOD 2+ (NEG); URINE COLOR YELLOW; URINE GLUCOSE 100 MG/DL (NEG); URINE KETONE TRACE (NEG); URINE LEUKOCYTE ESTERASE NEG (NEG); URINE NITRATE NEG (NEG); URINE PROTEIN 3+ (NEG); URINE SPECIFIC GRAVITY 1.017 (1.003-1.035); URINE UROBILINOGEN 0.2 MG/DL (NEG)
[2016-06-11 20:23] LABS: CULTURE INDICATED? YES; URINE BACTERIA AUWI NEG (NEGATIVE); URINE SQUAMOUS EPITHELIAL CELL MOD /[HPF]
[2016-06-11 20:27] LABS: URINE SOURCE CATH
[2016-06-12 05:26] LABS: BASOPHIL# 0.1 X10e3 (0-0.3); EOSINOPHIL# 0.2 X10e3 (0-0.7); EOSINOPHIL% 1.2 % (0.0-7.0); HEMOGLOBIN 10.6 gm/dL (12.0-16.0); LYMPHOCYTE# 2.6 X10e3 (1.0-3.5); LYMPHOCYTE% 21.6 % (17.0-45.0); MEAN CELL VOLUME 83.6 FL (83-96); MEAN CORPUSCULAR HEMOGLOBIN 28.5 PG (28-34); MEAN CORPUSCULAR HGB CONC 34.1 g/dL (30-36); MONOCYTE# 0.9 X10e3 (0-1.0); MONOCYTE% 7.7 % (3.0-12.0); NEUTROPHIL# 8.4 X10e3 (1.5-7.1); NEUTROPHIL% 68.5 % (40-75); PLATELET COUNT 193 X10e3 (140-420); RED BLOOD COUNT 3.71 X10e (3.90-5.30); RED CELL DISTRIBUTION WIDTH 14.3 % (11.0-15.5); WHITE BLOOD COUNT 12.2 X10e3 (4.0-10.5)
[2016-06-12 05:30] LABS: DIFF IND NO
[2016-06-12 06:17] LABS: BUN/CREATININE RATIO 7.21; CALCIUM SERUM 6.4 mg/dL (8.4-10.2); CREATININE SERUM 10.4 mg/dL (0.6-1.4); GLOM FILT RATE Estimated 4.1 mL/min (>60); POTASSIUM 3.6 mmol/L (3.5-5.1)
[2016-06-12 13:09] LABS: URINE SOURCE CLEAN CATCH
[2016-06-12 13:19] LABS: URINE APPEARANCE CLOUDY; URINE BILIRUBIN NEG (NEG); URINE BLOOD 2+ (NEG); URINE COLOR YELLOW; URINE GLUCOSE 250 MG/DL (NEG); URINE KETONE NEG (NEG); URINE LEUKOCYTE ESTERASE NEG (NEG); URINE NITRATE NEG (NEG); URINE PROTEIN 3+ (NEG); URINE SPECIFIC GRAVITY 1.017 (1.003-1.035); URINE UROBILINOGEN 0.2 MG/DL (NEG)
[2016-06-12 13:43] LABS: U HYALINE CASTS AUWI 0-2 /[LPF]; URINE AMORPHOUS SEDIMENT AMORP URATES; URINE BACTERIA AUWI 1+ (NEGATIVE); URINE GRANULAR CAST 0-2 /[HPF]; URINE SQUAMOUS EPITHELIAL CELL OCCAS /[HPF]
[2016-06-12 13:51] LABS: CREATININE,RANDOM URINE 64 mg/dL; POTASSIUM,URINE RANDOM 45 mmol/L
[2016-06-12 15:57] LABS: BUN/CREATININE RATIO 7.73; CREATININE SERUM 9.7 mg/dL (0.6-1.4); GLOM FILT RATE Estimated 4.4 mL/min (>60); POTASSIUM 3.7 mmol/L (3.5-5.1)
[2016-06-12 16:06] LABS: CALCIUM SERUM 6.4 mg/dL (8.4-10.2)
[2016-06-12 16:34] LABS: MAGNESIUM 1.5 mg/dL (1.6-3.0)
[2016-06-12 16:38] LABS: PHOSPHOROUS 9.6 mg/dL (2.5-4.6)
[2016-06-13 04:35] LABS: HEMATOCRIT 28.5 % (35.0-45.0); HEMOGLOBIN 9.8 gm/dL (12.0-16.0); MEAN CELL VOLUME 81.9 FL (83-96); MEAN CORPUSCULAR HEMOGLOBIN 28.1 PG (28-34); MEAN CORPUSCULAR HGB CONC 34.3 g/dL (30-36); RED BLOOD COUNT 3.48 X10e (3.90-5.30)
[2016-06-13 05:00] LABS: BUN/CREATININE RATIO 7.11; CALCIUM SERUM 6.1 mg/dL (8.4-10.2); CREATININE SERUM 10.4 mg/dL (0.6-1.4); GLOM FILT RATE Estimated 4.1 mL/min (>60); MAGNESIUM 1.4 mg/dL (1.6-3.0); POTASSIUM 3.2 mmol/L (3.5-5.1)
[2016-06-13 05:01] LABS: PHOSPHOROUS 8.7 mg/dL (2.5-4.6)
[2016-06-13 13:58] LABS: CREATININE,RANDOM URINE 40 mg/dL
[2016-06-13 13:59] LABS: TOTAL PROTEIN,RANDOM URINE 675 mg/dl (<10)
[2016-06-14 08:59] LABS: HEMATOCRIT 31.1 % (35.0-45.0); HEMOGLOBIN 10.8 gm/dL (12.0-16.0); MEAN CELL VOLUME 81.5 FL (83-96); MEAN CORPUSCULAR HEMOGLOBIN 28.3 PG (28-34); MEAN CORPUSCULAR HGB CONC 34.7 g/dL (30-36); MEAN PLATELET VOLUME 6.8 FL (6.5-11.5); RED BLOOD COUNT 3.82 X10e (3.90-5.30); RED CELL DISTRIBUTION WIDTH 14.6 % (11.0-15.5); WHITE BLOOD COUNT 15.6 X10e3 (4.0-10.5)
[2016-06-14 09:46] LABS: ALBUMIN SERUM 1.9 g/dL (3.5-5.0); BILIRUBIN,TOTAL 0.5 mg/dL (0.2-2.0); BUN/CREATININE RATIO 6.66; CALCIUM SERUM 6.5 mg/dL (8.4-10.2); CREATININE SERUM 10.2 mg/dL (0.6-1.4); GLOM FILT RATE Estimated 4.2 mL/min (>60); MAGNESIUM 1.8 mg/dL (1.6-3.0); POTASSIUM 3.5 mmol/L (3.5-5.1); PROTEIN TOTAL SERUM 4.8 g/dL (6.0-8.3)
[2016-06-14 09:51] LABS: PHOSPHOROUS 8.2 mg/dL (2.5-4.6)
[2016-06-14 13:16] LABS: PARTIAL THROMBOPLASTIN TIME 28.2 SECONDS (23.5-31.3); PROTHROMBIN TIME (PATIENT) 10.5 SECONDS (9.6-11.5)
[2016-06-15 07:36] LABS: COMPLEMENT C3 92 mg/dL (90-180); COMPLEMENT C4 33 mg/dL (16-47)
[2016-06-15 12:06] LABS: HEMATOCRIT 29.2 % (35.0-45.0); HEMOGLOBIN 9.9 gm/dL (12.0-16.0); MEAN CELL VOLUME 82.1 FL (83-96); MEAN CORPUSCULAR HEMOGLOBIN 27.9 PG (28-34); MEAN CORPUSCULAR HGB CONC 33.9 g/dL (30-36); MEAN PLATELET VOLUME 6.8 FL (6.5-11.5); RED BLOOD COUNT 3.56 X10e (3.90-5.30); RED CELL DISTRIBUTION WIDTH 14.5 % (11.0-15.5); WHITE BLOOD COUNT 17.2 X10e3 (4.0-10.5)
[2016-06-15 12:54] LABS: ALBUMIN SERUM 2.3 g/dL (3.5-5.0); BILIRUBIN,TOTAL 0.4 mg/dL (0.2-2.0); BUN/CREATININE RATIO 5.08; CREATININE SERUM 5.9 mg/dL (0.6-1.4); GLOM FILT RATE Estimated 7.8 mL/min (>60); POTASSIUM 3.7 mmol/L (3.5-5.1); PROTEIN TOTAL SERUM 4.8 g/dL (6.0-8.3)
[2016-06-16 07:09] LABS: HEMATOCRIT 24.7 % (35.0-45.0); HEMOGLOBIN 8.3 gm/dL (12.0-16.0); MEAN CELL VOLUME 82.9 FL (83-96); MEAN CORPUSCULAR HEMOGLOBIN 27.8 PG (28-34); MEAN CORPUSCULAR HGB CONC 33.6 g/dL (30-36); RED BLOOD COUNT 2.98 X10e (3.90-5.30); RED CELL DISTRIBUTION WIDTH 14.1 % (11.0-15.5); WHITE BLOOD COUNT 12.4 X10e3 (4.0-10.5)
[2016-06-16 07:20] LABS: PROTHROMBIN TIME (PATIENT) 10.7 SECONDS (9.6-11.5)
[2016-06-16 07:36] LABS: BILIRUBIN,TOTAL 0.5 mg/dL (0.2-2.0); BUN/CREATININE RATIO 5.28; CALCIUM SERUM 6.8 mg/dL (8.4-10.2); GLOM FILT RATE Estimated 6.4 mL/min (>60); MAGNESIUM 1.7 mg/dL (1.6-3.0); PHOSPHOROUS 4.9 mg/dL (2.5-4.6); POTASSIUM 3.2 mmol/L (3.5-5.1); PROTEIN TOTAL SERUM 4.2 g/dL (6.0-8.3)
[2016-06-16 14:39] LABS: ANA SCREEN Negative (Negative); MYELOPEROXIDASE AB (PNL) <1.0 AI (<1.0); PROTEINASE-3 AB (PNL) <1.0 AI (<1.0)
[2016-06-17 06:03] LABS: HEMATOCRIT 26.8 % (35.0-45.0); HEMOGLOBIN 8.9 gm/dL (12.0-16.0); MEAN CELL VOLUME 83.7 FL (83-96); MEAN CORPUSCULAR HEMOGLOBIN 27.8 PG (28-34); MEAN CORPUSCULAR HGB CONC 33.2 g/dL (30-36); MEAN PLATELET VOLUME 7.1 FL (6.5-11.5); RED BLOOD COUNT 3.2 X10e (3.90-5.30); RED CELL DISTRIBUTION WIDTH 14.2 % (11.0-15.5); WHITE BLOOD COUNT 12.3 X10e3 (4.0-10.5)
[2016-06-17 08:33] LABS: BUN/CREATININE RATIO 4.54; MAGNESIUM 1.9 mg/dL (1.6-3.0)
[2016-06-17 08:34] LABS: CREATININE SERUM 4.4 mg/dL (0.6-1.4)
[2016-06-17 14:10] LABS: HEMATOCRIT 20.3 % (35.0-45.0); MEAN CELL VOLUME 84.3 FL (83-96); MEAN CORPUSCULAR HEMOGLOBIN 27.5 PG (28-34); MEAN CORPUSCULAR HGB CONC 32.6 g/dL (30-36); MEAN PLATELET VOLUME 7.3 FL (6.5-11.5); RED BLOOD COUNT 2.41 X10e (3.90-5.30); RED CELL DISTRIBUTION WIDTH 14.1 % (11.0-15.5); WHITE BLOOD COUNT 12.7 X10e3 (4.0-10.5)
[2016-06-17 14:13] LABS: HEMOGLOBIN 6.6 gm/dL (12.0-16.0)
[2016-06-17 21:11] LABS: HEMATOCRIT 28.1 % (35.0-45.0)
[2016-06-18 06:30] LABS: HEMATOCRIT 23.8 % (35.0-45.0); MEAN CELL VOLUME 83.8 FL (83-96); MEAN CORPUSCULAR HEMOGLOBIN 28.1 PG (28-34); MEAN CORPUSCULAR HGB CONC 33.6 g/dL (30-36); MEAN PLATELET VOLUME 7.9 FL (6.5-11.5); RED BLOOD COUNT 2.84 X10e (3.90-5.30); RED CELL DISTRIBUTION WIDTH 14.4 % (11.0-15.5); WHITE BLOOD COUNT 13.9 X10e3 (4.0-10.5)
[2016-06-18 07:08] LABS: BUN/CREATININE RATIO 5.45; CALCIUM SERUM 7.2 mg/dL (8.4-10.2); CREATININE SERUM 5.5 mg/dL (0.6-1.4); GLOM FILT RATE Estimated 8.5 mL/min (>60)
[2016-06-18 17:18] LABS: HEMOGLOBIN 8.8 gm/dL (12.0-16.0)
[2016-06-19 05:15] LABS: HEMATOCRIT 22.2 % (35.0-45.0); HEMOGLOBIN 7.5 gm/dL (12.0-16.0); MEAN CELL VOLUME 84.1 FL (83-96); MEAN CORPUSCULAR HEMOGLOBIN 28.3 PG (28-34); MEAN CORPUSCULAR HGB CONC 33.6 g/dL (30-36); MEAN PLATELET VOLUME 7.7 FL (6.5-11.5); RED BLOOD COUNT 2.64 X10e (3.90-5.30); RED CELL DISTRIBUTION WIDTH 15.2 % (11.0-15.5); WHITE BLOOD COUNT 13.9 X10e3 (4.0-10.5)
[2016-06-19 06:35] LABS: BUN/CREATININE RATIO 4.16; CALCIUM SERUM 7.4 mg/dL (8.4-10.2); CREATININE SERUM 3.6 mg/dL (0.6-1.4); GLOM FILT RATE Estimated 13.9 mL/min (>60); PHOSPHOROUS 2.8 mg/dL (2.5-4.6); POTASSIUM 3.8 mmol/L (3.5-5.1)
[2016-06-19 17:12] LABS: HEMATOCRIT 26.6 % (35.0-45.0); HEMOGLOBIN 8.8 gm/dL (12.0-16.0)
[2016-06-19 21:38] LABS: HEMATOCRIT 23.7 % (35.0-45.0); HEMOGLOBIN 7.7 gm/dL (12.0-16.0)
[2016-06-20 00:35] LABS: HEMATOCRIT 23.2 % (35.0-45.0); HEMOGLOBIN 7.7 gm/dL (12.0-16.0)
[2016-06-20 01:01] LABS: HEP B SURFACE AG Nonreactive (Nonreactive)
[2016-06-20 06:56] LABS: HEMATOCRIT 23.8 % (35.0-45.0); HEMOGLOBIN 7.8 gm/dL (12.0-16.0)
[2016-06-20 07:28] LABS: BUN/CREATININE RATIO 4.04; CALCIUM SERUM 7.7 mg/dL (8.4-10.2); CREATININE SERUM 4.7 mg/dL (0.6-1.4); GLOM FILT RATE Estimated 10.2 mL/min (>60); POTASSIUM 3.5 mmol/L (3.5-5.1)
[2016-06-20 08:48] LABS: BASOPHIL# 0.1 X10e3 (0-0.3); BASOPHIL% 0.7 % (0-2.5); EOSINOPHIL# 0.2 X10e3 (0-0.7); HEMATOCRIT 23.9 % (35.0-45.0); LYMPHOCYTE# 2.8 X10e3 (1.0-3.5); LYMPHOCYTE% 16.7 % (17.0-45.0); MEAN CELL VOLUME 84.7 FL (83-96); MEAN CORPUSCULAR HEMOGLOBIN 28.4 PG (28-34); MEAN CORPUSCULAR HGB CONC 33.5 g/dL (30-36); MEAN PLATELET VOLUME 7.6 FL (6.5-11.5); MONOCYTE# 1.1 X10e3 (0-1.0); MONOCYTE% 6.5 % (3.0-12.0); NEUTROPHIL# 12.6 X10e3 (1.5-7.1); NEUTROPHIL% 75.1 % (40-75); PLATELET COUNT 222 X10e3 (140-420); RED BLOOD COUNT 2.83 X10e (3.90-5.30); RED CELL DISTRIBUTION WIDTH 14.6 % (11.0-15.5); WHITE BLOOD COUNT 16.8 X10e3 (4.0-10.5)
[2016-06-20 08:54] LABS: DIFF IND YES
[2016-06-20 08:58] LABS: PARTIAL THROMBOPLASTIN TIME 29.4 SECONDS (23.5-31.3); PROTHROMBIN TIME (PATIENT) 10.6 SECONDS (9.6-11.5)
[2016-06-20 10:19] LABS: PLATELET ESTIMATE NORMAL (NORMAL)
[2016-06-20 16:29] LABS: HEMATOCRIT 23.9 % (35.0-45.0); HEMOGLOBIN 7.9 gm/dL (12.0-16.0)
[2016-06-21 06:25] LABS: HEMATOCRIT 24.1 % (35.0-45.0); HEMOGLOBIN 7.9 gm/dL (12.0-16.0); MEAN CELL VOLUME 85.5 FL (83-96); MEAN CORPUSCULAR HEMOGLOBIN 28.2 PG (28-34); MEAN PLATELET VOLUME 7.7 FL (6.5-11.5); RED BLOOD COUNT 2.82 X10e (3.90-5.30); RED CELL DISTRIBUTION WIDTH 14.8 % (11.0-15.5); WHITE BLOOD COUNT 13.3 X10e3 (4.0-10.5)
[2016-06-21 06:46] LABS: BUN/CREATININE RATIO 4.54; CALCIUM SERUM 7.2 mg/dL (8.4-10.2); CREATININE SERUM 3.3 mg/dL (0.6-1.4); GLOM FILT RATE Estimated 15.3 mL/min (>60); POTASSIUM 4.2 mmol/L (3.5-5.1)
[2016-06-22 07:32] LABS: HEMATOCRIT 30.5 % (35.0-45.0); HEMOGLOBIN 10.3 gm/dL (12.0-16.0); MEAN CELL VOLUME 84.9 FL (83-96); MEAN CORPUSCULAR HEMOGLOBIN 28.7 PG (28-34); MEAN CORPUSCULAR HGB CONC 33.8 g/dL (30-36); MEAN PLATELET VOLUME 7.8 FL (6.5-11.5); RED BLOOD COUNT 3.59 X10e (3.90-5.30); RED CELL DISTRIBUTION WIDTH 14.7 % (11.0-15.5); WHITE BLOOD COUNT 15.9 X10e3 (4.0-10.5)
[2016-06-22 08:01] LABS: BILIRUBIN,TOTAL 0.6 mg/dL (0.2-2.0); BUN/CREATININE RATIO 4.28; CALCIUM SERUM 7.5 mg/dL (8.4-10.2); CREATININE SERUM 4.2 mg/dL (0.6-1.4); GLOM FILT RATE Estimated 11.6 mL/min (>60); MAGNESIUM 1.7 mg/dL (1.6-3.0); POTASSIUM 4.4 mmol/L (3.5-5.1); PROTEIN TOTAL SERUM 4.7 g/dL (6.0-8.3)
[2016-06-22] MEDS ORDERED: FLONASE 0.05% N16 G1 (13:22)
[2016-06-22] MEDS ORDERED: PHOSLO667 M1 PO (13:25)
[2016-06-22] MEDS ORDERED: CLONIDINE HCL0.3 MG PO (13:25)
[2016-06-22] MEDS ORDERED: AMLODIPINE PO (13:26)
[2016-06-22] MEDS ORDERED: HYDRALAZINE HC100 MG PO (13:26)
[2016-06-22] MEDS ORDERED: FUROSEMIDE40 MG PO (13:28)
[2016-06-22] MEDS ORDERED: DELTASONE20 MG PO (14:28)
[2016-06-24 00:57] LABS: HEP C AB (HEPPAN) Nonreactive (Nonreactive); HEP C AB SIGNAL TO CUTOFF 0.03 ratio (<1.00)
[2016-06-26] MEDS ORDERED: NORVASC10 MG PO (12:43)
[2016-06-26] MEDS ORDERED: LASIX PO (12:44)
== END 2016-06-22 16:29 | disposition home health service (06) | DRG 385 ==
LOC: CED 15:22 → CEDOF 19:34 → C3A PCU 06-12 00:16 → C2A 06-19 17:15
PROVIDERS: Emergency Medicine; Internal Medicine; Internal Medicine Nephrology; Radiology Diagnostic Radiology; Urology
PROC: B513YZA Fluoroscopy of Right Jugular Veins using Other Contrast, Guidance (ICD-10-PCS; 2016-06-14)
PROC: 05HM33Z Insertion of Infusion Device into Right Internal Jugular Vein, Percutaneous Approach (ICD-10-PCS; 2016-06-14)
PROC: B543ZZA Ultrasonography of Right Jugular Veins, Guidance (ICD-10-PCS; 2016-06-14)
PROC: 30233J1 Transfusion of Nonautologous Serum Albumin into Peripheral Vein, Percutaneous Approach (ICD-10-PCS; 2016-06-15)
PROC: 5A1D60Z (ICD-10-PCS; 2016-06-15)
PROC: 0TB03ZX Excision of Right Kidney, Percutaneous Approach, Diagnostic (ICD-10-PCS; principal; 2016-06-16)
PROC: B416YZZ Fluoroscopy of Right Renal Artery using Other Contrast (ICD-10-PCS; 2016-06-17)
PROC: 30233N1 Transfusion of Nonautologous Red Blood Cells into Peripheral Vein, Percutaneous Approach (ICD-10-PCS; 2016-06-17)
PROC: B543ZZA Ultrasonography of Right Jugular Veins, Guidance (ICD-10-PCS; 2016-06-20)
PROC: 05HM33Z Insertion of Infusion Device into Right Internal Jugular Vein, Percutaneous Approach (ICD-10-PCS; 2016-06-20)
PROC: B513YZA Fluoroscopy of Right Jugular Veins using Other Contrast, Guidance (ICD-10-PCS; 2016-06-20)
DX: K51.00 Ulcerative (chronic) pancolitis without complications (principal); E43 Unspecified severe protein-calorie malnutrition; N17.0 Acute kidney failure with tubular necrosis; A41.9 Sepsis, unspecified organism; J18.9 Pneumonia, unspecified organism; E87.2 Acidosis; D62 Acute posthemorrhagic anemia; N17.9 Acute kidney failure, unspecified; N39.0 Urinary tract infection, site not specified; N99.820 Postprocedural hemorrhage of a genitourinary system organ or structure following a genitourinary system procedure; N05.5 Unspecified nephritic syndrome with diffuse mesangiocapillary glomerulonephritis; I10 Essential (primary) hypertension; D63.8 Anemia in other chronic diseases classified elsewhere; Z90.49 Acquired absence of other specified parts of digestive tract; Z90.710 Acquired absence of both cervix and uterus; Z88.1 Allergy status to other antibiotic agents; Z87.891 Personal history of nicotine dependence; G43.909 Migraine, unspecified, not intractable, without status migrainosus; Z84.1 Family history of disorders of kidney and ureter; K59.00 Constipation, unspecified; E55.9 Vitamin D deficiency, unspecified; M54.9 Dorsalgia, unspecified
CPT/HCPCS: 36415; 71020; 74000; 74176; 76770; 76937; 77001; 77012; 80048; 80053; 80076; 81003; 82306; 82436; 82550; 82570; 82947; 83520; 83615; 83630; 83690; 83735; 84100; 84133; 84156; 84300; 84550; 85014; 85018; 85025; 85027; 85044; 85610; 85730; 86021; 86038; 86039; 86160; 86225; 86334; 86335; 86705; 86707; 86803; 86850; 86900; 86901; 86923; 87045; 87086; 87340; 87350; 87427; 87449; 87493; 87899; 88300; 88305; 88313; 88346; 88348; 88350; 89190; 93005; 94760; 96361; 96372; 96374; 97116; 97162; 97165; 97530; 99285; C1750; C1760; C1887; J0360; J0500; J0610; J0696; J0885; J1170; J1644; J1885; J1940; J1956; J2250; J2310; J2405; J2550; J2765; J3010; J3475; J7060; P9016; P9047; Q4081; Q9967

== ENCOUNTER 2016-06-26 13:19 | Inpatient (IN) | payer OTHER ==
--- NOTE | ~2016-06-26 | A ---
[facility] Nutrition Therapy DATE: 06/27/16 Patient: AYAN ZAPIEN Physician: MONSERRAT Address: [address] [place] [address] RD Room/Bed: [address] [place] [address], Zip: [place] [address] Admit Date: 06/26/16 Date of : 58 Height: 5 3 Weight: 186 84.6 NUTRITIONAL ASSESSMENT: REASON: Consult RE: low albumin Pt is 56 yo female admitted for shortness of breath PMH: HTN, end-stage renal disease, acute tubular necrosis, edema, cholecystectomy Anthropometrics: 5'3", WT: 84.6 kg, BMI: 33.0 Labs: BUN 27 Creat 4.5 Ca++ 7.4 Alb 2.3 GFR 10.7 Meds: NaCl, Lipitor, Zofran, Furosemide, Os Griffin + D, Prednisone, Phoslo I/O & Bowel function: 960/1, last BM 06/26 Skin Integrity: Bruising (BUE) Edema: BLE 3+, Abdomen 1+, Back 2+ Estimated Nutrition Needs: Increased protein needs due to pt on HD Assessment: Chart reviewed, events noted. Per Baton, pt has a history of end-stage renal disease and is recieving hemodialysis. Pt reported fluctuating weights is due to fluid. Pt also reports poor intake prior to admission due to not feeling well. Per RD observation, pt ate ~10-20% of lunch today. Pt reports this is due to a dislike of the food, not because her appetite is poor. RD encouraged increased protein intake due to dialysis. Pt stated not liking Nepro shakes. RD suggested new flavor to try, pt agreed. Of note, RD has previously provided renal diet education to this pt. Pt reported no questions at this time. Please see recommendations below. Dx: Inadequate protein intake RT increased protein needs, clinical condition AEB poor intake reported by pt, MD consulted RD. Intervention: 1. Nepro BID Monitoring, Evaluation and Goals: 1. Nutrition; provide and consume >75% of nutrition needs 2. Labs; WNL: BUN, Creat, GFR Recommendations: [facility] Nutrition Therapy DATE: 06/27/16 Patient: AYAN ZAPIEN Physician: MONSERRAT Address: [address] [place] [address] RD Room/Bed: [address] [place] [address], Zip: [place] [address] Admit Date: 06/26/16 Date of : 58 Height: 5 3 Weight: 186 84.6 1. Butter Pecan Nepro BID for supplemental nutrition. 2. Obtain current Phos level, as there has this has not been checked since previous admission. Pt is receiving Phoslo. 3. Continue heart healthy diet. If the pt's Phos or K+ levels become elevated, may consider renal diet restriction. Pt is at mild nutritional risk. RD will follow hospital course per protocol. Respectfully, URI YOUSSEF, Decorating Machine Tender Libia Westfall, HERVE, LD Food and Nutritional Services [facility] cc: client file
--- NOTE | ~2016-06-26 | CT57 ---
[facility] A Service of [facility] RADIOLOGY TEXT RESULTS PATIENT: AYAN ZAPIEN LOCATION: [facility] 315-01 : 58 UNIT #: [id number] AGE: [address]: TONI MINER MD SEX: F ORDER DR: [id number] [facility] [address] [facility]. [place], [place] [address] [id number] I MR#: [id number] Acc #: [id number] NAME: AYAN ZAPIEN : 1960 SEX: F STUDY DATE/TIME: 06/29/2016 1006 UNIT: A U ROOM: [facility] STUDY DESCRIPTION: CT Chest Wo Cont Attending Physician: Toni Miner M.D. Ordering Physician: Kiley Paz M.D. Primary Care Physician: Rodrigo Pak M.D. MEDICAL IMAGING REPORT This report is preliminary unless electronic signature is present EXAM CT chest without contrast 06/29/2016 1006 hours HISTORY 56-year-old woman complaining of shortness of air since 06/26/2016 with cough. Acute renal failure secondary to glomerulonephritis requiring increased immunosuppression. Evaluate for resolution of previously diagnosed pneumonia. COMPARISON CT abdomen and pelvis 06/17/2016 and chest x-ray 06/28/2016 TECHNIQUE Helical noncontrasted images were obtained from the thoracic inlet through the adrenal glands. Sagittal and coronal reconstructions were performed. Total exam DLP 284 mGy-cm. This CT exam was performed with one or more of the following radiation dose reduction techniques: automatic exposure control, adjustment of mA and/or kV according to patient size, and iterative reconstruction. FINDINGS Images through the thoracic inlet demonstrate no thyroid lesion. There is a right IJ catheter with tip in the upper right atrium. There is a mildly tortuous aorta with atherosclerotic change. There is ectasia measuring 3.8 cm. There is no pericardial fluid. There are moderate to moderately large bilateral pleural effusions right greater than left similar to prior chest film. These are slightly increased from CT abdomen lung window images 06/17/2016. The lungs demonstrate coarse reticular changes in both lungs diffusely suggesting edema. There is patchy ground-glass change in both upper lobes, lingula, right middle lobe. There is more dense airspace change at STS. [facility] A Service of [facility] RADIOLOGY TEXT RESULTS PATIENT: AYAN ZAPIEN LOCATION: [facility] 315-01 : 58 UNIT #: [id number] AGE: [address]: TONI MINER MD SEX: F ORDER DR: the lung bases abutting the pleural effusions. The findings are increased from lung window images of CT abdomen 06/17/2016 but similar to chest film 06/28/2016. Findings are most suggestive of edema. Pneumonia cannot be excluded given the patchy ground-glass changes and bibasilar airspace changes. Limited views through the upper abdomen are negative. IMPRESSION 1. Abnormal chest CT with moderately large pleural effusions right greater than left similar to prior chest film. These are increased from CT abdomen 06/17/2016. 2. There is diffuse reticular change in both lungs with patchy ground-glass densities in the upper lungs and more dense airspace change at the lung bases. The findings favor the presence of edema/congestive failure. Infection cannot be completely excluded. The basilar airspace changes with air bronchograms are felt most likely to be related to atelectasis given the adjacent effusions. However pneumonia cannot be excluded. Dictated by... Kristie Ferrer M.D. THIS IS AN ELECTRONICALLY VERIFIED REPORT Kristie Ferrer M.D. at 06/29/2016 6:59 PM RENY/marisol TD: 06/29/2016 16:53 JOB #: [id number] MEDICAL IMAGING REPORT COPY
--- NOTE | ~2016-06-26 | EKG ---
PATIENT: AYAN ZAPIEN UNIT #: [id number] Ventricular Rate: 81 BPM Atrial Rate: 81 BPM P-R Interval: 178 ms QRS Duration: 68 ms Q-T Interval: 448 ms QTC Calculation(Bezet): 520 ms P Marston: 49 degrees Calculated R Marston: 80 degrees Calculated T Marston: 133 degrees Diagnosis Line: Normal sinus rhythm Diagnosis Line: Low voltage QRS Diagnosis Line: T wave abnormality, consider anterolateral Diagnosis Line: ischemia Diagnosis Line: Prolonged QT Diagnosis Line: Abnormal ECG Diagnosis Line: When compared with ECG of 11-JUN-2016 15:40, Diagnosis Line: T wave inversion now evident in Anterolateral Diagnosis Line: leads Diagnosis Line: QT has lengthened Diagnosis Line: Confirmed by CATHY GARZA MD ([id number]) on Diagnosis Line: 06/27/2016 12:07:53 AM INTERPRETING MD: KAYLA SUAREZ
--- NOTE | ~2016-06-26 | EKG ---
PATIENT: AYAN ZAPIEN UNIT #: [id number] Ventricular Rate: 76 BPM Atrial Rate: 76 BPM P-R Interval: 172 ms QRS Duration: 74 ms Q-T Interval: 398 ms QTC Calculation(Bezet): 447 ms P Magness: 48 degrees Calculated R Magness: 61 degrees Calculated T Magness: 84 degrees Diagnosis Line: Normal sinus rhythm Diagnosis Line: Low voltage QRS Diagnosis Line: Septal infarct (cited on or before 28-JUN-2016) Diagnosis Line: Abnormal ECG Diagnosis Line: When compared with ECG of 28-JUN-2016 13:32, Diagnosis Line: No significant change was found Diagnosis Line: Confirmed by CATHY GARZA MD ([id number]) on Diagnosis Line: 06/29/2016 11:28:48 AM INTERPRETING MD: KAYLA SUAREZ
--- NOTE | ~2016-06-26 | A ---
[facility] Nutrition Therapy DATE: 06/29/16 Patient: AYAN ZAPIEN Physician: MONSERRAT Address: [address] [facility] Room/Bed: [address] [place] [address], Zip: [place] [address] Admit Date: 06/26/16 Date of : 58 Height: 5 3 Weight: 182 83 NUTRITIONAL ASSESSMENT: REASON: Consult for renal/ low sodium diet education Assessment: RD received a consult to educate the pt on a renal/ low sodium diet due to nephritis. Of note, the pt is on HD and this RD has previously provided renal diet education. RD spoke with the pt at bedside. Pt and family member were sleeping, but woke up to speak with RD. RD reviewed renal/ low sodium diet education, and the pt and family member both asked specific quesitons. Pt demonstrated motivation to comply with the diet, and verbalized things she could change at home. RD provided printed materials for the pt's reference, and encouraged her to contact RD with any further questions. RD also suggested that the pt follow up with the RD at the dialysis center if she is to continue HD after discharge. Pt agreed. Recommendations: 1. Pt to follow a renal/ low sodium diet as instructed by RD. 2. RD will follow up with the pt per protocol. Respectfully, WAYNE GREEN RD, LD Food and Nutritional Services [facility] cc: client file
--- NOTE | ~2016-06-26 | DS ---
Unit #: [id number] #: [id number] Patient: AYAN ZAPIEN [id number] [place], [place] [address] [id number] I MR#: [id number] NAME: AAYN ZAPIEN. ROOM: 315 Age: 56 Sex: F Admission Date: 06/26/2016 : 1960 Discharge Date: 07/01/2016 Attending Physician: Sarah Miner M.D. Primary Care Physician: Rodrigo Pak M.D. DISCHARGE SUMMARY REVISED REPORT DISCHARGE DIAGNOSES 1. Acute renal failure secondary to glomerulonephritis. 2. Fluid overload. 3. Hypertension. 4. Right retroperitoneal hematoma, post renal biopsy. 5. Large right pleural effusion, status post thoracentesis with removal of 1300 mL of serosanguineous fluid removal. HOSPITAL COURSE The patient is a 56-year-old female with a past medical history of end stage renal disease and hypertension. She presented to the emergency room complaining of shortness of breath. The patient was admitted to the telemetry bed for the shortness of breath with the fluid overload. See the H and P for further details. The patient was seen by renal for the dialysis during the hospitalization. The patient had ectz-qk-fwer dialysis during the hospitalization. The patient also had a CT of the chest that showed there was an abnormal chest CT with moderately large pleural effusion right greater than the left that is similar to prior chest films. There was a diffuse reticular change in both lungs with patchy ground-glass densities in the upper lungs and more dense airspace change at the lung bases. These findings favor the presence of edema and congestive failure. The patient was seen by cardiology, Dr. Paz during hospitalization for elevated troponins up to 0.06. The patient had an echocardiogram that showed EF of 30% to 35%, apical hypokinesis, mildly dilated left atrium. The patient is started on Coreg and I recommended conservative management. The patient had a thoracocentesis and removal of 1300 mL of fluid. The patient started feeling better and the patient was discharged home in stable condition. PHYSICAL EXAMINATION GENERAL: The patient is lying in bed not in acute distress. VITAL SIGNS: Temperature 98.4, pulse 76, respirations 18, blood pressure 137/81, satting 96% at 2 L. HEENT: Head atraumatic and normocephalic. Pupils equal, round, reactive to light and accommodation. Extraocular movements are intact. NECK: Supple. No JVD. LUNGS: Decreased air entry at the bases. HEART: Regular rate and rhythm. ABDOMEN: Soft, positive bowel sounds. EXTREMITIES: No cyanosis. Positive for edema. NEUROLOGIC: Alert, awake and oriented. No gross focal motor deficits. Patient's I's and O's are 1560/1400. Unit #: [id number] #: [id number] Patient: AYAN ZAPIEN DIAGNOSTIC STUDIES LABORATORY DATA: Glucose 107, BUN 22, creatinine 4.7, sodium 131, potassium 4.1, chloride 104, bicarb 24, and calcium 8. WBC 11.1, hemoglobin 8.8, hematocrit 27.2, platelets 247. Patient's pleural fluid Gram stain showed no organisms. CONSULTANTS Renal - Dr. Vasquez and Cardiology - Dr. Paz. DISCHARGE HOME MEDICATIONS 1. Patient is discharged on calcium tablets. 2. Isordil 20 mg twice daily. 3. Prednisone 20 mg 3 tablets daily. 4. Spiriva. 5. Sertraline. 6. Benadryl. 7. Xanax. 8. Coreg 6.25 mg twice daily. 9. Lasix 60 mg twice daily. 10. Lipitor 20 mg daily. 11. Catapres 0.1 mg twice daily. 12. Hydralazine 100 mg 3 times daily. DISCHARGE STATUS Patient is discharged home in stable condition. DISCHARGE INSTRUCTIONS Patient has an appointment to follow up with renal as an outpatient and go to the regular dialysis and patient has an appointment with cardiology on 08/12/2016 at 9:30 a.m. Dictated by... Sarah Miner M.D. Ousmane TD: 07/04/2016 08:15 JOB #: [id number] CC: Saima/alirio Please Delete DISCHARGE SUMMARY X X DISCHARGE SUMMARY
--- NOTE | ~2016-06-26 | HP ---
Unit #: [id number] #: [id number] Patient: AYAN ZAPIEN [id number] [facility]. [place], [place] [address] [id number] I MR#: [id number] NAME: AYAN ZAPIEN. ROOM: 32336 Age: 56 Sex: F Admission Date: 06/26/2016 : 1960 Attending Physician: Sarah Miner M.D. Primary Care Physician: Rodrigo Pak M.D. HISTORY AND PHYSICAL CHIEF COMPLAINT Shortness of breath. HISTORY OF PRESENT ILLNESS The patient is a 56-year-old female with a past medical history of hypertension and end-stage renal disease, on dialysis, who presented to the emergency room complaining of shortness of breath. The patient stated that patient woke up this morning with shortness of breath associated with a productive cough yellowish in color. The patient also complains of pain in the back of the chest. The patient was recently discharged from the hospital on June 22 with a right retroperitoneal hematoma following renal biopsy, membranoproliferative glomerulonephritis, and acute tubular necrosis. The patient had dialysis yesterday and was without any problems. The patient stated that patient had subjective fevers and chills. She denies any chest pain, nausea, and vomiting. The patient is being admitted for the above reasons. A chest x-ray shows patient has a pleural effusion associated with pulmonary vascular congestion and atelectasis versus infiltrate concerning for pneumonia. PAST MEDICAL HISTORY 1. Hypertension. 2. Migraines. 3. Acute tubular necrosis. 4. Membranoproliferative glomerulonephritis. PAST SURGICAL HISTORY 1. Hysterectomy. 2. Cholecystectomy. 3. Tonsillectomy. 4. AV fistula creation. HOME MEDICATIONS 1. Calcium. 2. Zyrtec. 3. Sertraline. 4. Benadryl. 5. Lipitor. 6. Xanax. 7. Lortab. 8. Flonase. 9. PhosLo. 10. Clonidine. 11. Hydralazine. 12. Prednisone. Unit #: [id number] #: [id number] Patient: AYAN ZAPIEN 13. Norvasc. 14. Lasix. ALLERGIES IMITREX, BYSTOLIC, MORPHINE, AND ERYTHROMYCIN. SOCIAL HISTORY History of remote smoker. Denies any alcohol or any illicit drug abuse. FAMILY HISTORY Father has history of drug abuse. REVIEW OF SYSTEMS A 14-point review of systems was performed and only pertinent positive findings are described above. The remaining are negative. PHYSICAL EXAMINATION GENERAL: Patient is lying in bed not in acute distress. VITAL SIGNS: Temperature 97.6, pulse 91, respiratory rate 18, blood pressure 140/93, and saturating 93% on room air. HEENT: Head atraumatic, normocephalic. Pupils equal, round, and reactive to light and accommodation. Extraocular movements are intact. NECK: Supple. No JVD. LUNGS: Coarse breath sounds. Decreased air entry. Positive for crackles. CHEST: Patient has a dialysis catheter on the right chest without any tenderness. HEART: Regular rate and rhythm. ABDOMEN: Soft. Positive bowel sounds. EXTREMITIES: No cyanosis, no clubbing. NEUROLOGIC: Alert, awake, and oriented. No gross focal motor deficit. PSYCHIATRIC: Mood and affect are appropriate. DIAGNOSTIC STUDIES LABORATORY: Glucose 113, BUN 21, creatinine 3.6, sodium 134, potassium 3.5, chloride 97, bicarb 27, calcium 7.8, total protein 5.4, albumin 2.3, AST 18, ALT 10, and alkaline phosphatase 71. BNP is 4877. Lactic acid is 0.9. INR is 1.1. WBC 15.8, hemoglobin 10.2, hematocrit 30.6, and platelets 187,000. IMAGING: Chest x-ray shows pulmonary vascular congestion and pleural fluid. ASSESSMENT 1. End-stage renal disease, on hemodialysis. 2. Pulmonary vascular congestion. 3. Fluid overload. PLAN Admit the patient to observation with telemetry. Continue with IV antibiotics with cefepime and Zithromax. Continue diuretics with Lasix 60 mg IV b.i.d. Will have a Renal consult for dialysis. Follow with sputum cultures. Further recommendations will follow as more lab results are available. Dictated by Tano Elliott/jamie Unit #: [id number] #: [id number] Patient: AYAN ZAPIEN TD: 06/26/2016 21:02 JOB #: [id number] HISTORY AND PHYSICAL X X HISTORY AND PHYSICAL
--- NOTE | ~2016-06-26 | CR71 ---
[facility] A Service of [facility] RADIOLOGY TEXT RESULTS PATIENT: AYAN ZAPIEN LOCATION: [facility] 315-01 : 58 UNIT #: [id number] AGE: [address]: TONI MINER MD SEX: F ORDER DR: [id number] [facility]. [place], [place] [address] [id number] I MR#: [id number] Acc #: [id number] NAME: AYAN ZAPIEN : 1960 SEX: F STUDY DATE/TIME: 06/30/2016 14:09 UNIT: [address] ROOM: [facility] STUDY DESCRIPTION: CR Chest Single View Attending Physician: Toni Miner M.D. Ordering Physician: Torrey Leon M.D. Primary Care Physician: Rodrigo Pak M.D. MEDICAL IMAGING REPORT This report is preliminary unless electronic signature is present EXAM Chest portable 06/30/2016 1409 hours HISTORY 56-year-old with history of pleural effusion status post thoracentesis today. Evaluate for pneumothorax. COMPARISON CT chest 06/29/2016, portable chest 06/28/2016 FINDINGS Portable upright film demonstrates stable right central venous catheter with tip at the junction of SVC and right atrium. There is interstitial change in the lungs improved from 06/28/2016 chest film. There are bilateral small to moderate pleural effusions clearly improved on the right. There is no pneumothorax. IMPRESSION Improving bilateral interstitial edema as compared to 06/28/2016. There are small bilateral pleural effusions left greater than right with significant improvement on the right on this post thoracentesis film. There is no pneumothorax. Dictated by... Kristie Ferrer M.D. THIS IS AN ELECTRONICALLY VERIFIED REPORT Kristie Ferrer M.D. at 07/01/2016 9:18 AM RENY/terrencer TD: 06/30/2016 19:57 JOB #: [id number] [facility] A Service of [facility] RADIOLOGY TEXT RESULTS PATIENT: AYAN ZAPIEN LOCATION: [facility] [id number] : [birth year] UNIT #: [id number] AGE: [address]: TONI MINER MD SEX: F ORDER DR: MEDICAL IMAGING REPORT COPY
--- NOTE | ~2016-06-26 | EKG ---
PATIENT: AYAN ZAPIEN UNIT #: [id number] Ventricular Rate: 88 BPM Atrial Rate: 88 BPM P-R Interval: 176 ms QRS Duration: 68 ms Q-T Interval: 368 ms QTC Calculation(Bezet): 445 ms P [place]: 61 degrees Calculated R [place]: 68 degrees Calculated T [place]: 102 degrees Diagnosis Line: Normal sinus rhythm Diagnosis Line: Low voltage QRS Diagnosis Line: Septal infarct , age undetermined Diagnosis Line: Abnormal ECG Diagnosis Line: When compared with ECG of 26-JUN-2016 12:17, Diagnosis Line: Nonspecific T wave abnormality has replaced Diagnosis Line: inverted T waves in Lateral leads Diagnosis Line: QT has shortened Diagnosis Line: Confirmed by VINCENT LANG MD ([id number]) on 06/28/2016 Diagnosis Line: 7:34:44 PM INTERPRETING MD: PRECIOUS SUAREZ
--- NOTE | ~2016-06-26 | CR72 ---
[facility] A Service of [facility] RADIOLOGY TEXT RESULTS PATIENT: AYAN ZAPIEN LOCATION: [facility] 315-01 : 58 UNIT #: [id number] AGE: [address]: TONI MINER MD SEX: F ORDER DR: [id number] [id number] [facility]. [place], [place] [address] [id number] I MR#: [id number] Acc #: [id number] NAME: AYAN ZAPIEN : 1960 SEX: F STUDY DATE/TIME: 06/28/2016 UNIT: [address] ROOM: [facility] STUDY DESCRIPTION: CR Chest Single View Portable Attending Physician: Toni Miner M.D. Ordering Physician: [facility] Primary Care Physician: Rodrigo Pak M.D. MEDICAL IMAGING REPORT This report is preliminary unless electronic signature is present EXAM Chest portable 06/28/2006 09:13 hours HISTORY 56-year-old with shortness of air today, follow up pleural effusions. COMPARISON 06/26/2016 FINDINGS 2 portable upright films demonstrate a right central venous dual-lumen catheter with inferior tip in the right atrium without change. The heart size is stable. There is increase in pulmonary venous distension, increase in diffuse bilateral coarse interstitial markings and increase in right greater than left pleural effusions suggesting worsening congestive failure. IMPRESSION 1. Stable right IJ catheter with tip in the right atrium. 2. There is definite interval increase in coarse bilateral interstitial markings and increase in right greater than left pleural effusions suggesting edema/CHF. Findings have progressed since 06/26/2016. Dictated by... Kristie Ferrer M.D. THIS IS AN ELECTRONICALLY VERIFIED REPORT Kristie Ferrer M.D. at 06/28/2016 2:30 PM SMM/hebert TD: 06/28/2016 13:24 JOB #: [id number] [facility] A Service of [facility] RADIOLOGY TEXT RESULTS PATIENT: AYAN ZAPIEN [id number] 58 UNIT #: [id number] AGE: [address]: TONI MINER MD SEX: F ORDER DR: MEDICAL IMAGING REPORT COPY
--- NOTE | ~2016-06-26 | XA203 ---
[facility] A Service of [facility] RADIOLOGY TEXT RESULTS PATIENT: AYAN ZAPIEN LOCATION: [facility] 315-01 : 58 UNIT #: [id number] AGE: [address]: TONI MINER MD SEX: F ORDER DR: [id number] [facility]. [place], [place] [address] [id number] I MR#: [id number] Acc #: [id number] NAME: AYAN ZAPIEN : 1960 SEX: F STUDY DATE/TIME: 06/30/2016 12:33 [facility] STUDY DESCRIPTION: XA Thoracentesis Attending Physician: Toni Miner M.D. Ordering Physician: Kiley Paz M.D. Primary Care Physician: Rodrigo Pak M.D. MEDICAL IMAGING REPORT This report is preliminary unless electronic signature is present EXAM Ultrasound-guided right thoracentesis, 06/30/2016 INDICATION 56-year-old female with right pleural effusion. Risks, benefits and alternatives of the procedure were discussed with the patient and informed consent was obtained. In the procedure room a time-out was performed confirming correct patient and procedure. All elements of maximum sterile-barrier technique utilized according to guidelines appropriate for the procedure. TECHNIQUE/FINDINGS Ultrasound of the right posterior hemithorax was performed. This demonstrated a moderate-sized right pleural effusion. The overlying skin was prepped and draped in the usual sterile fashion. 1% lidocaine utilized to anesthetize the skin and underlying subcutaneous tissues. Next, under ultrasound guidance a 5-Monegasque Yueh catheter was inserted in the pleural space on the right and 1300 mL of serosanguineous fluid was removed and sample was sent to the lab. The needle was removed and a sterile dressing was applied. No immediate complications. IMPRESSION Technically successful ultrasound-guided right thoracentesis. Dictated by... Rashawn Cedeno M.D. THIS IS AN ELECTRONICALLY VERIFIED REPORT Rashawn Cedeno M.D. at 07/04/2016 8:37 AM CLYDE/christin STS. [facility] A Service of [facility] RADIOLOGY TEXT RESULTS PATIENT: AYAN ZAPIEN LOCATION: [facility] 315-01 : 58 UNIT #: [id number] AGE: [address]: TONI MINER MD SEX: F ORDER DR: TD: 07/01/2016 03:20 JOB #: [id number] MEDICAL IMAGING REPORT COPY
--- NOTE | ~2016-06-26 | CR72 ---
[facility] A Service of [facility] RADIOLOGY TEXT RESULTS PATIENT: AYAN ZAPIEN LOCATION: [facility] 315-01 : 58 UNIT #: [id number] AGE: [address]: TONI MINER MD SEX: F ORDER DR: [id number] [facility] [address] [facility]. [place], [place] [address] [id number] I MR#: [id number] Acc #: [id number] NAME: AYAN ZAPIEN : 1960 SEX: F STUDY DATE/TIME: 06/26/2016 12:37 UNIT: CEDOF ROOM: 45490 STUDY DESCRIPTION: CR Chest Single View Portable Attending Physician: Toni Miner M.D. Ordering Physician: Shivam Xiao M.D. Primary Care Physician: Rodrigo Pak M.D. MEDICAL IMAGING REPORT This report is preliminary unless electronic signature is present EXAM Frontal chest, 06/26/2016 INDICATIONS 56-year-old female with shortness of air this morning. Cough, pneumonia, congestion, hypertension. TECHNIQUE Frontal chest compared with 06/15/2016. FINDINGS Right-sided central line terminates at the cavoatrial junction. Cardiac silhouette stable. There is a moderate-sized right-sided effusion with atelectasis or pneumonia in the right lung base. Probable trace left effusion and atelectasis in the left lower lobe. No pneumothorax. Mild vascular congestion suspected. IMPRESSION 1. Probable mild vascular congestion. 2. Right-sided effusion with compressive atelectasis or pneumonia in the right lung base. 3. There may be a trace amount of pleural fluid on the left as well. No pneumothorax. 4. There is prominence of the right and left lukas. This is unchanged and likely reflects prominent pulmonary arteries. Dictated by... Kemar Boles M.D. THIS IS AN ELECTRONICALLY VERIFIED REPORT Kemar Boles M.D. at 06/27/2016 7:38 AM JLY/psc [facility] A Service of [facility] RADIOLOGY TEXT RESULTS PATIENT: AYAN ZAPIEN LOCATION: [facility] 315-01 : 58 UNIT #: [id number] AGE: [address]: TONI MINER MD SEX: F ORDER DR: TD: 06/26/2016 19:17 JOB #: [id number] MEDICAL IMAGING REPORT COPY
--- NOTE | ~2016-06-26 | CO ---
Unit #: [id number] #: [id number] Patient: AYAN ZAPIEN [id number] [facility]. [address] [place], [place] [address] [id number] I MR#: [id number] NAME: AYAN ZAPIEN ROOM: 315 Age: 56 Sex: F Admission Date: 06/26/2016 : 1960 Attending Physician: Sarah Miner M.D. Primary Care Physician: Rodrigo Pak M.D. Consultation Date: 06/28/2016 CONSULTATION REPORT REASON FOR CONSULTATION Mildly elevated troponin and fluid overload, elevated BNP. 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 The patient was just in the hospital and discharged on June 22 from this facility. The patient also has a history of hypertension, hyperlipidemia, recent normal stress test who came to the emergency room for increased shortness of breath, increased lower extremity edema. The patient came in on Monday. She said she did go to her dialysis treatment that Monday before. At first, she thought it was more with exertion but then as the day went on, she said it was just minimal exertion. She said that was a change. She also was starting to cough up a yellow sputum. She also had some discomfort in the middle of her back. She was concerned she might be getting some type of pneumonia. She also had some nausea. She denied any chest pain, pain in her neck, bilateral jaws, shoulders, arms, or elbows. She had a slight chill but denied any fever and no abdominal pain. In the emergency room, a chest x-ray showed that the patient had pleural effusion associated with pulmonary vascular congestion and atelectasis versus infiltrate concerning for pneumonia. Her BUN was 21 with creatinine 3.6. Potassium was 3.5. BNP was 4877. Lactic acid 0.9. WBCs were 15.8. Renal was asked to give patient additional dialysis for fluid overload. She has been started on IV antibiotics for possible pneumonia and also before the senior partner saw her, she started diuresing with IV Lasix. Her troponin was 0.06. Her EKG showed normal sinus rhythm with nonspecific ST-T wave abnormalities in anterolateral leads. Cardiology has been asked to assist with evaluation and management. According to patient, she has not had any recent chest pain. PAST MEDICAL HISTORY 1. End-stage renal disease on hemodialysis which was recently initiated in May 2016 for membranoproliferative glomerulonephritis and acute tubular necrosis. 2. Hypertension. 3. Hyperlipidemia. 4. June 07, 2015, exercise Cardiolite stress test. Exercise time 6 minutes, no stress-induced ischemia, ejection fraction 70%. 5. Recent hospitalization, June 11 to June 22, 2016, for acute on chronic kidney disease requiring initiation of dialysis and also right retroperitoneal hematoma after renal biopsy which resulted in acute blood loss anemia status post 4 units of packed red blood cells. Unit #: [id number] #: [id number] Patient: AYAN ZAPIEN 6. History of hypertension. 7. Hyperlipidemia. 8. Nicotine abuse. PAST SURGICAL HISTORY 1. Renal biopsy. 2. Hysterectomy. 3. Cholecystectomy. 4. Tonsillectomy. 5. AV fistula creation which is recent. HOME MEDICATIONS 1. Calcium 600 plus vitamin D one tablet p.o. twice daily. 2. Zyrtec 10 mg p.o. daily. 3. Sertraline 100 mg p.o. twice daily. 4. Benadryl 25 mg every evening. 5. Lipitor 20 mg daily. 6. Xanax 0.5 mg p.o. three times daily p.r.n. 7. Lortab 7.5/325 one tablet p.o. every four hours p.r.n. 8. Flonase one spray nasally daily. 9. Calcium acetate two tablets p.o. three times daily with meals. 10. Clonidine 0.3 mg p.o. three times daily. 11. Hydralazine 100 mg p.o. three times daily. 12. Deltasone 60 mg p.o. daily. 13. Norvasc 10 mg p.o. daily. 14. Lasix 60 mg p.o. twice daily. ALLERGIES Imitrex, nebivolol (which is Bystolic), morphine, erythromycin, sumatriptan. SOCIAL HISTORY The patient lives with her family. She quit smoking when she was in the hospital her last hospitalization but she still uses a nicotine patch. She had been smoking a pack a day for most of her adult life. No alcohol or illicit drug abuse. FAMILY HISTORY Her mother from colon cancer. Her father from kidney cancer. REVIEW OF SYSTEMS See details in HPI. PHYSICAL EXAMINATION GENERAL: On exam, Ms. Zapien is a 56-year-old white female. She is currently having hemodialysis. VITAL SIGNS: Blood pressure is 152/90, heart rate 76, respirations 18, temperature 97.6, O2 saturation 97% on room air. NECK: Trachea midline. No thyromegaly or lymphadenopathy. Normal carotid upstrokes. No jugular venous distention. HEART: S1, S2. Regular rate and rhythm. A soft systolic murmur left sternal border. LUNGS: Diminished, otherwise clear. ABDOMEN: Soft, nontender. Positive bowel sounds present. EXTREMITIES: Pedal pulses are palpable. One plus pedal edema. DIAGNOSTIC STUDIES LABORATORY: Glucose is 97, BUN 16, creatinine 3.1, eGFR is 16.5, sodium Unit #: [id number] #: [id number] Patient: AYAN ZAPIEN L 136, potassium 4, chloride 103, CO2 of 26, calcium 7.7. Phosphorous 2.8, magnesium is pending. Total protein 5.4, albumin 2.3, bilirubin total 0.9, AST 18, ALT 10, alkaline phosphatase 71. BNP is greater than 4877. Lactic acid 0.9. WBC is 8.7, hemoglobin 8.9, hematocrit 27.5, and platelets 160,000. Initial cardiac enzymes: CK-MB is 19, troponin 0.06. Repeat cardiac enzymes today: CK total is 27, troponin 0.07. IMAGING: Chest x-ray shows definite increase in coarse bilateral interstitial markings and increasing right greater than left pleural effusion suggesting edema or CHF. CARDIOVASCULAR: EKG shows normal sinus rhythm, ventricular rate 81 beats per minute, ST-T wave abnormalities in anterolateral leads with T-wave inversion. IMPRESSION 1. Acute on chronic fluid overload, end-stage renal disease on hemodialysis, recently initiated. 2. Acute diastolic congestive heart failure. 3. Mildly elevated troponin. 4. Hypertension. 5. Hyperlipidemia. 6. Normal stress test, June 07, 2015, with ejection fraction of 70%. 7. 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 8. Status post renal biopsy in late May resulting in a right retroperitoneal hematoma and had acute blood loss anemia, was status post 4 units of packed red blood cells. 9. Recently quit smoking. PLAN 1. Cardiology consulted to assist with evaluation and management. The patient had a troponin of 0.06 and 0.07. That is not indicative of acute coronary syndrome. Will get an EKG today for comparison. She did have some nonspecific changes. The patient had a recent stress test about three weeks ago that was essentially normal. On exam, she has no signs or symptoms of unstable angina. The mild elevation in the troponin may likely be from her chronic kidney disease. 2. The patient is getting additional dialysis the day she was admitted and then today. Her chest x-ray still continues to show some fluid overload. A 2D echo has been ordered to evaluate left ventricular function and valves. 3. Fasting lipid profile and TSH to be done to evaluate. 4. The patient is on dialysis. 5. The patient is on hydralazine and Norvasc and clonidine for blood pressure management. Heart rate and blood pressure have been stable. 6. The patient's hemoglobin is staying (1) transfusions. She is not on an aspirin. Will evaluate. 7. Dr. Paz had a preliminary review of her 2D echo at bedside. It shows her left ventricular ejection fraction is about 25% which is significantly decreased from the stress test that was done back in May. Also, her EKG shows some anteroseptal lateral ischemia but the patient eventually will need a cardiac catheterization to further evaluate for ischemic heart disease. 8. Will start the patient on a beta braden 3.125 mg p.o. twice daily in addition to her hydralazine and clonidine. Will need to put the patient on an KYLEIGH inhibitor or ARB before discharge. Will discuss Unit #: [id number] #: [id number] Patient: AYAN ZAPIEN with nephrology if the patient can be started on KYLEIGH inhibitor or ARB. Encourage patient to continue to quit smoking. She is on nicotine patches. She says she is doing fairly well with that. 9. The patient verbalizes understanding of her cardiac status and agrees for recommended management and if she needs a heart catheterization, will be agreeable to that. 10. Dr. Paz was discussed with nephrology and the hospitalist. 11. Further recommendations pending per Dr. Paz. Thank you very much for allowing us to assist in the care. Dictated by... Spike Herbert M.D. [facility] TD: 06/30/2016 10:35 JOB #: [id number] CC: Rodrigo Pak M.D. CONSULTATION REPORT X Mishel La [employer] X CONSULTATION REPORT
[~2016-06-26 13:19] MED LIST changes: +AMLODIPINE BESYL5 MG PO; +AMLODIPINE PO; +ASPIRIN81 MG PO; +BENAZEPRIL-HCT1 EAC1 PO; +CALCIUM 600 +1 EA12 PO; +CLONIDINE HCL0.3 MG PO; +COMPAZINE5 MG PO; +DELTASONE20 MG PO; +FLONASE 0.05% N16 G1; +FUROSEMIDE40 MG PO; +HYDRALAZINE HC100 MG PO; +LASIX PO; +LIORESAL10 MG PO; +LIPITOR20 MG PO; +LORTAB 7.5-3251 EACH PO; +MUCINEX100 MG/BOX PO; +NORVASC10 MG PO; +PHOSLO667 M1 PO; +POTASSIUM99 M1 PO; +SERTRALINE HCL100 M1 PO; +XANAX0.5 MG PO; +ZYRTEC10 M1 PO
[2016-06-26 13:24] LABS: POC - CKMB 1.5 ng/mL (0.0-7.9); POC - TROPONIN 0.06 ng/mL (<=0.05)
[2016-06-26 13:51] LABS: BASOPHIL% 0.2 % (0-2.5); EOSINOPHIL% 0.1 % (0.0-7.0); HEMATOCRIT 30.6 % (35.0-45.0); HEMOGLOBIN 10.2 gm/dL (12.0-16.0); INR 1.1; LYMPHOCYTE# 1.3 X10e3 (1.0-3.5); MEAN CELL VOLUME 85.2 FL (83-96); MEAN CORPUSCULAR HEMOGLOBIN 28.3 PG (28-34); MEAN CORPUSCULAR HGB CONC 33.2 g/dL (30-36); MEAN PLATELET VOLUME 8.3 FL (6.5-11.5); MONOCYTE# 1.4 X10e3 (0-1.0); NEUTROPHIL% 82.7 % (40-75); PLATELET COUNT 187 X10e3 (140-420); PROTHROMBIN TIME (PATIENT) 11.4 SECONDS (9.6-11.5); RED BLOOD COUNT 3.59 X10e (3.90-5.30); RED CELL DISTRIBUTION WIDTH 15.3 % (11.0-15.5); WHITE BLOOD COUNT 15.8 X10e3 (4.0-10.5)
[2016-06-26 13:54] LABS: DIFF IND YES
[2016-06-26 13:55] LABS: ALBUMIN SERUM 2.3 g/dL (3.5-5.0); BILIRUBIN, DIRECT 0.1 mg/dL (0.0-0.2); BILIRUBIN,INDIRECT 0.8 mg/dL (0.0-0.9); BILIRUBIN,TOTAL 0.9 mg/dL (0.2-2.0); BUN/CREATININE RATIO 5.83; CALCIUM SERUM 7.8 mg/dL (8.4-10.2); CREATININE SERUM 3.6 mg/dL (0.6-1.4); GLOM FILT RATE Estimated 13.9 mL/min (>60); POTASSIUM 3.5 mmol/L (3.5-5.1); PROTEIN TOTAL SERUM 5.4 g/dL (6.0-8.3)
[2016-06-26 15:35] LABS: ANISOCYTOSIS MOD; PLATELET ESTIMATE NORMAL (NORMAL); POIKILOCYTOSIS SL
[2016-06-27 05:59] LABS: BASOPHIL% 0.2 % (0-2.5); EOSINOPHIL% 0.3 % (0.0-7.0); HEMOGLOBIN 8.8 gm/dL (12.0-16.0); LYMPHOCYTE# 2.5 X10e3 (1.0-3.5); LYMPHOCYTE% 22.5 % (17.0-45.0); MEAN CELL VOLUME 85.1 FL (83-96); MEAN CORPUSCULAR HEMOGLOBIN 27.8 PG (28-34); MEAN CORPUSCULAR HGB CONC 32.6 g/dL (30-36); MEAN PLATELET VOLUME 8.3 FL (6.5-11.5); MONOCYTE# 1.3 X10e3 (0-1.0); MONOCYTE% 11.6 % (3.0-12.0); NEUTROPHIL# 7.2 X10e3 (1.5-7.1); NEUTROPHIL% 65.4 % (40-75); PLATELET COUNT 154 X10e3 (140-420); RED BLOOD COUNT 3.17 X10e (3.90-5.30); RED CELL DISTRIBUTION WIDTH 15.4 % (11.0-15.5); WHITE BLOOD COUNT 10.9 X10e3 (4.0-10.5)
[2016-06-27 06:00] LABS: DIFF IND NO
[2016-06-27 07:21] LABS: CALCIUM SERUM 7.4 mg/dL (8.4-10.2); CREATININE SERUM 4.5 mg/dL (0.6-1.4); GLOM FILT RATE Estimated 10.7 mL/min (>60); POTASSIUM 3.8 mmol/L (3.5-5.1)
[2016-06-27 14:34] LABS: BUN/CREATININE RATIO 6.04; CALCIUM SERUM 7.9 mg/dL (8.4-10.2); CREATININE SERUM 4.8 mg/dL (0.6-1.4); GLOM FILT RATE Estimated 9.9 mL/min (>60); PHOSPHOROUS 2.8 mg/dL (2.5-4.6)
[2016-06-28 06:05] LABS: HEMATOCRIT 27.5 % (35.0-45.0); HEMOGLOBIN 8.9 gm/dL (12.0-16.0); MEAN CELL VOLUME 86.2 FL (83-96); MEAN CORPUSCULAR HEMOGLOBIN 27.9 PG (28-34); MEAN CORPUSCULAR HGB CONC 32.4 g/dL (30-36); MEAN PLATELET VOLUME 8.6 FL (6.5-11.5); RED BLOOD COUNT 3.19 X10e (3.90-5.30); RED CELL DISTRIBUTION WIDTH 15.6 % (11.0-15.5); WHITE BLOOD COUNT 8.7 X10e3 (4.0-10.5)
[2016-06-28 07:03] LABS: BUN/CREATININE RATIO 5.16; CALCIUM SERUM 7.7 mg/dL (8.4-10.2); CREATININE SERUM 3.1 mg/dL (0.6-1.4); GLOM FILT RATE Estimated 16.5 mL/min (>60)
[2016-06-28 14:15] LABS: CK TOTAL 27 IU/L (26-140)
[2016-06-29 06:28] LABS: HEMATOCRIT 27.9 % (35.0-45.0); MEAN CELL VOLUME 85.9 FL (83-96); MEAN CORPUSCULAR HEMOGLOBIN 27.9 PG (28-34); MEAN CORPUSCULAR HGB CONC 32.5 g/dL (30-36); MEAN PLATELET VOLUME 8.9 FL (6.5-11.5); RED BLOOD COUNT 3.24 X10e (3.90-5.30); RED CELL DISTRIBUTION WIDTH 15.9 % (11.0-15.5); WHITE BLOOD COUNT 10.5 X10e3 (4.0-10.5)
[2016-06-29 07:06] LABS: BUN/CREATININE RATIO 5.18; CALCIUM SERUM 7.9 mg/dL (8.4-10.2); CREATININE SERUM 2.7 mg/dL (0.6-1.4); GLOM FILT RATE Estimated 19.3 mL/min (>60); POTASSIUM 4.2 mmol/L (3.5-5.1)
[2016-06-30 06:10] LABS: HEMOGLOBIN 9.8 gm/dL (12.0-16.0); MEAN CELL VOLUME 87.4 FL (83-96); MEAN CORPUSCULAR HEMOGLOBIN 27.6 PG (28-34); MEAN CORPUSCULAR HGB CONC 31.6 g/dL (30-36); MEAN PLATELET VOLUME 9.1 FL (6.5-11.5); RED BLOOD COUNT 3.54 X10e (3.90-5.30); RED CELL DISTRIBUTION WIDTH 16.9 % (11.0-15.5); WHITE BLOOD COUNT 14.4 X10e3 (4.0-10.5)
[2016-06-30 07:01] LABS: ALBUMIN SERUM 2.5 g/dL (3.5-5.0); BILIRUBIN,TOTAL 0.7 mg/dL (0.2-2.0); BUN/CREATININE RATIO 4.73; CALCIUM SERUM 8.6 mg/dL (8.4-10.2); CREATININE SERUM 3.8 mg/dL (0.6-1.4); POTASSIUM 4.5 mmol/L (3.5-5.1); PROTEIN TOTAL SERUM 5.4 g/dL (6.0-8.3)
[2016-06-30 11:32] LABS: INR 1.1; PARTIAL THROMBOPLASTIN TIME 24.6 SECONDS (23.5-31.3); PROTHROMBIN TIME (PATIENT) 11.4 SECONDS (9.6-11.5)
[2016-06-30 16:09] LABS: BF TOTAL NUCLEATED CELL COUNT 160 CMM (0-100); BODY FLUID APPEARANCE BLOODY; BODY FLUID RBC 15076 CMM; BODY FLUID SOURCE PLEURAL
[2016-07-01 07:20] LABS: HEMATOCRIT 27.2 % (35.0-45.0); HEMOGLOBIN 8.8 gm/dL (12.0-16.0); MEAN CELL VOLUME 87.4 FL (83-96); MEAN CORPUSCULAR HEMOGLOBIN 28.1 PG (28-34); MEAN CORPUSCULAR HGB CONC 32.1 g/dL (30-36); MEAN PLATELET VOLUME 8.9 FL (6.5-11.5); RED BLOOD COUNT 3.12 X10e (3.90-5.30); RED CELL DISTRIBUTION WIDTH 16.1 % (11.0-15.5); WHITE BLOOD COUNT 11.1 X10e3 (4.0-10.5)
[2016-07-01 08:00] LABS: BUN/CREATININE RATIO 4.68; CREATININE SERUM 4.7 mg/dL (0.6-1.4); GLOM FILT RATE Estimated 10.2 mL/min (>60); POTASSIUM 4.1 mmol/L (3.5-5.1)
[2016-07-01] MEDS ORDERED: COREG12.5 M1 PO (14:56)
[2016-07-01] MEDS ORDERED: ISORDIL PO (14:57)
== END 2016-07-01 17:14 | disposition home or self-care (01) | DRG 698 ==
LOC: CED 13:19 → CEDOF 16:00 → C3A PCU 23:40
PROVIDERS: Emergency Medicine; Internal Medicine; Internal Medicine Cardiovascular Disease; Internal Medicine Nephrology
PROC: 5A1D60Z (ICD-10-PCS; principal; 2016-06-27)
PROC: 0W9930Z Drainage of Right Pleural Cavity with Drainage Device, Percutaneous Approach (ICD-10-PCS; 2016-06-30)
DX: N05.5 Unspecified nephritic syndrome with diffuse mesangiocapillary glomerulonephritis (principal); K66.1 Hemoperitoneum; I50.31 Acute diastolic (congestive) heart failure; J18.9 Pneumonia, unspecified organism; J90 Pleural effusion, not elsewhere classified; N18.6 End stage renal disease; N17.9 Acute kidney failure, unspecified; I13.2 Hypertensive heart and chronic kidney disease with heart failure and with stage 5 chronic kidney disease, or end stage renal disease; N17.0 Acute kidney failure with tubular necrosis; I08.3 Combined rheumatic disorders of mitral, aortic and tricuspid valves; Z99.2 Dependence on renal dialysis; G43.909 Migraine, unspecified, not intractable, without status migrainosus; Z90.710 Acquired absence of both cervix and uterus; Z90.49 Acquired absence of other specified parts of digestive tract; E78.5 Hyperlipidemia, unspecified; F17.210 Nicotine dependence, cigarettes, uncomplicated; D63.1 Anemia in chronic kidney disease; R74.9 Abnormal serum enzyme level, unspecified
CPT/HCPCS: 36415; 71010; 71250; 80048; 80053; 80061; 80076; 82550; 82553; 83605; 83880; 84100; 84443; 84484; 85025; 85027; 85610; 85730; 87040; 87070; 87102; 87205; 87206; 89051; 93005; 93306; 94640; 94760; 94761; 99291; J0456; J0692; J0885; J1642; J1644; J1940; J2150; J2405; J2543; J3260; J3370; Q4081

== ENCOUNTER 2016-09-30 16:36 | Inpatient (IN) | payer OTHER ==
--- NOTE | ~2016-09-30 | HP ---
Unit #: [id number] #: [id number] Patient: AYAN ZAPIEN [id number] [address] [address] [id number] I MR#: [id number] NAME: AYAN ZAPIEN. ROOM: [facility] Age: 56 Sex: F Admission Date: 10/01/2016 : 1960 Attending Physician: Andra Crews M.D. Primary Care Physician: Rodrigo Pak M.D. HISTORY AND PHYSICAL CHIEF COMPLAINT Low hemoglobin level. HISTORY OF PRESENT ILLNESS This patient basically is a 56-year-old female with end-stage renal disease currently on dialysis, history of dyslipidemia, migraine headaches, anemia, who was called in by the dialysis staff. Hemoglobin was around 6 and she reported feeling week and dizzy while standing and denies any rectal bleed. No vomiting blood. She does have some diarrhea off and on. The patient denies any headache, blurry vision. No chest pain. PAST MEDICAL HISTORY As described. PAST SURGICAL HISTORY Hysterectomy, tonsillectomy, shoulder surgery, gallbladder surgery. SOCIAL HISTORY Positive smoking. No alcohol or drug abuse. MEDICATION 1. Alprazolam. 2. Benadryl. 3. Zyrtec. 4. Hydrocodone. 5. Albuterol. 6. Amlodipine. 7. Lipitor. 8. Baclofen. 9. Benazepril. 10. Clonidine. 11. Clotrimazole. 12. Cyclophosphamide. 13. Furosemide. 14. Hydralazine. 15. Hydrochlorothiazide. 16. Potassium chloride. 17. Prednisone. 18. Prochlorperazine. 19. Promethazine. 20. Sertraline. REVIEW OF SYSTEMS Unit #: [id number] #: [id number] Patient: AYAN ZAPIEN Positive pallor. No edema. No signs of jaundice. The rest of a 12-point review of systems has been reviewed and negative. PHYSICAL EXAMINATION VITAL SIGNS: Temperature 98. Pulse 87. Respiration 12. Blood pressure 130/70. NEUROLOGIC: Awake, alert, oriented. No neuro deficit. HEENT: Pallor. NECK: Supple. CHEST: Bilateral air entry. Bilateral mild rhonchi. GASTROINTESTINAL: Nontender. Soft. Positive bowel sounds. EXTREMITIES: No edema. DIAGNOSTIC STUDIES LABORATORY: Creatinine 2.0, sodium 125, potassium 3.1. Hemoglobin now 9, hematocrit 27. Stable hemoglobin. PLAN To continue monitoring hemoglobin, GI and DVT prophylaxis and Renal consultation. I will consider GI to evaluate and the patient will be closely monitored. Please see orders for detailed plan. We will await for Nephrology to see the patient. Dictated by Tano Nagel/luis TD: 10/01/2016 11:08 JOB #: [id number] HISTORY AND PHYSICAL Page 1 of 1 X Andra Crews MD X HISTORY AND PHYSICAL
--- NOTE | ~2016-09-30 | DS ---
Unit #: [id number] #: [id number] Patient: AYAN ZAPIEN [id number] [address] [place], [place] [address] [id number] I MR#: [id number] NAME: AYAN ZAPIEN. ROOM: [facility] Age: 56 Sex: F Admission Date: 10/01/2016 : 1960 Discharge Date: 10/03/2016 Attending Physician: Andra Crews M.D. Primary Care Physician: Rodrigo Pak M.D. DISCHARGE SUMMARY REASON FOR ADMISSION Low hemoglobin level. HISTORY OF PRESENT ILLNESS This is a very pleasant 56-year-old female with endstage renal disease - currently on dialysis, hyperlipidemia, migraine and anemia who presented to the hospital after she was found on routine labs to have a low hemoglobin. The patient stated that she was profoundly weak and fatigued. She felt some lightheadedness, but she did not pass out. She denied any stool color change. The patient stated that she had a biopsy of her kidney a few months ago and she had anemia then complicated with hematoma, but other than that, she does not need frequent transfusions. The patient had an EGD a couple years ago and colonoscopy many years before, and both were normal. The patient was transfused in our facility, and her hemoglobin on discharge was 9. She was supposed to be evaluated by gastroenterology; however, the patient had a situation, and she would like to be discharged and follow up as an outpatient. ADMITTING DIAGNOSIS Acute on chronic anemia. DISCHARGE DIAGNOSES 1. Acute on chronic anemia, probably related to endstage renal disease; however, gastrointestinal workup is needed. 2. Endstage renal disease, on hemodialysis. 3. History of glomerulonephritis. 4. Hypertension. 5. History of right retroperitoneal hematoma. 6. Migraine. 7. Acute tubular necrosis. 8. Glomerulonephritis. DISCHARGE CONDITION Stable. DISPOSITION Home. HOME MEDICATIONS 1. Bactrim Monday, Monday, Monday, written by nephrology. Unit #: [id number] #: [id number] Patient: AYAN ZAPIEN 2. Clonidine 0.1 mg t.i.d. 3. Prednisone 10 mg p.o. daily. 4. Lipitor 20 mg p.o. daily. 5. Diphenhydramine 25 mg at bedtime. 6. Claritin 10 mg daily. 7. Cytoxan 50 mg daily. 8. Norvasc 10 mg p.o. daily. 9. Zoloft 100 mg p.o. b.i.d. 10. Vitamin D and calcium 500 mg p.o. b.i.d. 11. Furosemide 80 mg p.o. b.i.d. 12. Loperamide as needed. 13. Lioresal 10 mg t.i.d. 14. Hydralazine 100 mg p.o. t.i.d. 15. Claritin 10 mg daily. 16. Compazine as needed. Dictated by... Tano Hall TD: 10/03/2016 11:26 JOB #: [id number] DISCHARGE SUMMARY Page 1 of 1 X CUONG VARGAS MD X DISCHARGE SUMMARY
--- NOTE | ~2016-09-30 | HP ---
Unit #: [id number] #: [id number] Patient: AYAN ZAPIEN [id number] [address] [address] [id number] I MR#: [id number] NAME: AYAN ZAPIEN. ROOM: [facility] Age: 56 Sex: F Admission Date: 09/30/2016 : 1960 Attending Physician: Andra Crews M.D. Primary Care Physician: Rodrigo Pak M.D. HISTORY AND PHYSICAL CHIEF COMPLAINT Anemia. HISTORY OF PRESENT ILLNESS 56-year-old female with a past medical history of acute renal failure and likely history of COPD and hypertension, presents with a complaint of anemia. Hemoglobin was 6.4. Was given two units of blood in the emergency room, transferred to out hospital complaining of nausea, weakness and off and on episodes of vomiting and diarrhea. PAST MEDICAL HISTORY 1. Acute renal failure on Cytoxan and prednisone. 2. Hypertension. 3. COPD. SOCIAL HISTORY One pack smoker per day. Denies alcohol or drug abuse. HOME MEDICATIONS 1. Sertraline. 2. Lipitor. 3. Prednisone. 4. Xanax. 5. Gout. 6. Calcium. 7. Hydralazine. 8. Clonidine. ALLERGIES Bystolic and morphine. PHYSICAL EXAMINATION VITAL SIGNS: Temperature 98, pulse 87, respirations 12, blood pressure 190/90. NEUROLOGICAL: Awake, alert, oriented. No neuro deficit. HEENT: PERRLA. NECK: Supple. No JVD. CHEST: Bilateral air entry, bilateral mild rhonchi. GI: Nontender, soft. Bowel sounds positive. EXTREMITIES: No edema. DIAGNOSTIC STUDIES Labs and imaging have been reviewed. Unit #: [id number] #: [id number] Patient: AYAN ZAPIEN ASSESSMENT AND PLAN 1. Anemia. 2. Acute renal failure. 3. Hypertension. 4. Hyperkalemia. 5. Uncontrolled hypertension. 6. Likely chronic obstructive pulmonary disease. Plan is to continue monitoring hemoglobin and hematocrit. I will consider GI consultation. Replace electrolytes. Nephrology consultation. Bronchodilators. Smoking cessation. Please see orders for detailed plan. Dictated by Tano Nagel/margarito TD: 10/03/2016 07:12 JOB #: [id number] HISTORY AND PHYSICAL Page 1 of 1 X Andra Crews MD HISTORY AND PHYSICAL
--- NOTE | ~2016-09-30 | CO ---
Unit #: [id number] #: [id number] Patient: LIZ ZAPIEN [id number] [address] [place], [place] [address] [id number] I MR#: [id number] NAME: LIZ ZAPIEN ROOM: [facility] Age: 56 Sex: F Admission Date: 09/30/2016 : 1960 Attending Physician: Andra Crews M.D. Primary Care Physician: Rodrigo Pak M.D. Consultation Date: 10/01/2016 CONSULTATION REPORT REASON FOR CONSULTATION End-stage renal disease/acute renal failure. Thank you very much for asking me to see this patient in consultation. HISTORY OF PRESENT ILLNESS Ms. Liz Zapien is a 56-year-old female, who has a history of acute renal failure in 06/2016, who underwent a kidney biopsy and from the records, I cannot tell if she had membranous or membranoproliferative. We will have to check first of the week, but the patient was started on prednisone and Cytoxan. She continued to be on dialysis still. She had hemoglobin that was 6.8 on Monday. It was repeated, it is 6.4 yesterday at which time the patient was instructed to go the emergency room where she was admitted with a hemoglobin of 9.7. The patient states however over the last 24 hours, she has had a lot of nausea, couple of episodes of vomiting, some intermittent diarrhea. She also noted to have a blood pressure of 190s to 200; although, she states she is taking her medications. 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 MEDICATIONS At home include calcium, vitamin D, Zyrtec, sertraline, Lipitor 20 mg, Xanax, prednisone 20, Lasix 80 mg b.i.d., hydralazine 100 mg t.i.d. her clonidine is 0.1 mg half a tablet t.i.d. She is also on Norvasc 10 mg a day, one potassium pill a day, and Cytoxan 50 mg a day. ALLERGIES Include Bystolic, E-Mycin, morphine. REVIEW OF SYSTEMS As mentioned in the HPI. She denies any visual problems, sinus problems, cough, hemoptysis, sore throat, difficulty swallowing. No neck pain or neck stiffness. No chest pain, chest tightness, or palpitations. No severe shortness of breath. No lower extremity swelling. No recent seizures or strokes. FAMILY HISTORY Noncontributory. Unit #: [id number] #: [id number] Patient: LIZ ZAPIEN PHYSICAL EXAMINATION GENERAL: She is alert and oriented. VITAL SIGNS: Temperature 98.5, pulse 84 to 108, blood pressure 196 to 210 over 91 to 95. HEENT: She is normocephalic and atraumatic. Pupils are equal, round, and reactive to light. Extraocular muscles are intact. Hearing appears to be normal. Mouth clear. No erythema. No exudate. NECK: Supple. No JVD. No adenopathy. CHEST: She has a tunneled catheter in chest without drainage. CARDIAC: She has regular rate and rhythm without a rub. No S3 or S4. LUNGS: Clear bilaterally. No wheezes, rhonchi, or rales. ABDOMEN: Bowel sounds are positive. Nontender, soft. EXTREMITIES: She has no lower extremity swelling. NEUROLOGIC: Appears to be intact motor and sensory grossly. : Deferred. DIAGNOSTIC STUDIES LABORATORY RESULTS: Shows sodium down to 125 today with a potassium of 3.1, chloride is 93, bicarb is 24, BUN 9, creatinine 2.0 with a glucose of 102, calcium is 8. Hemoglobin is 9.7, white count 5700, platelets 171,000. ASSESSMENT AND PLAN 1. Acute renal failure, questionable end-stage renal disease. The patient's creatinine is down to 2; although, she did receive dialysis yesterday. Although, she does make urine. She says adequate amount. We will go ahead and check 24- hour urine to see what her true creatinine clearance is to see if she is recovering or not. Also, we will need to check with my office records to see what her underlying glomerulonephritis is to determine how I want to handle her immunosuppression either here or as an outpatient. For now, we will continue current medications. 2. Hypertension. Blood pressure is elevated; although, she says she did take some of her medicines yesterday. Restart her medications. Follow her trends and adjust. Her clonidine was decreased a week or two ago due to the patient's heart rate to be low and feeling weak and tired. 3. Hyponatremia, unsure why she is hyponatremic. I am going to put her on a p.o. fluid restriction. Check TSH in a.m. and recheck labs later today. 4. Hypokalemia. We will give a couple of doses of oral potassium and check again in a.m. 5. Anemia, certainly hemoglobin is better now post dialysis. Further workup and treatment per primary. Dictated by... Justa Dia M.D. GENEVIEVE/saji TD: 10/01/2016 16:41 JOB #: [id number] Unit #: [id number] #: [id number] Patient: LIZ ZAPIEN CONSULTATION REPORT Page 1 of 1 X Greg Dia MD X CONSULTATION REPORT
[~2016-09-30 16:36] MED LIST changes: +COREG12.5 M1 PO; +ISORDIL PO
[2016-10-01] MEDS ORDERED: CLONIDINE HCL0.1 MG PO (03:02)
[2016-10-01] MEDS ORDERED: NORVASC10 MG PO (03:03)
[2016-10-01] MEDS ORDERED: LIORESAL10 MG PO (03:03)
[2016-10-01] MEDS ORDERED: POTASSIUM99 M1 PO (03:11)
[2016-10-01] MEDS ORDERED: COMPAZINE10 M2 PO (03:11)
[2016-10-01] MEDS ORDERED: CYCLOPHOSPHAMID50 M1 PO (03:16)
[2016-10-01 05:52] LABS: BASOPHIL% 0.6 % (0-2.5); EOSINOPHIL% 0.8 % (0.0-7.0); HEMATOCRIT 27.4 % (35.0-45.0); HEMOGLOBIN 9.7 gm/dL (12.0-16.0); LYMPHOCYTE# 0.1 X10e3 (1.0-3.5); LYMPHOCYTE% 2.2 % (17.0-45.0); MEAN CELL VOLUME 92.4 FL (83-96); MEAN CORPUSCULAR HEMOGLOBIN 32.5 PG (28-34); MEAN CORPUSCULAR HGB CONC 35.2 g/dL (30-36); MEAN PLATELET VOLUME 7.1 FL (6.5-11.5); MONOCYTE# 0.6 X10e3 (0-1.0); MONOCYTE% 9.8 % (3.0-12.0); NEUTROPHIL% 86.6 % (40-75); PLATELET COUNT 171 X10e3 (140-420); RED BLOOD COUNT 2.97 X10e (3.90-5.30); RED CELL DISTRIBUTION WIDTH 15.5 % (11.0-15.5); WHITE BLOOD COUNT 5.7 X10e3 (4.0-10.5)
[2016-10-01 06:02] LABS: DIFF IND YES
[2016-10-01 06:24] LABS: BUN/CREATININE RATIO 4.5; POTASSIUM 3.1 mmol/L (3.5-5.1)
[2016-10-01 07:34] LABS: ANISOCYTOSIS MOD; PLATELET ESTIMATE NORMAL (NORMAL); POLYCHROMASIA SL; RBC NORMAL YES
[2016-10-01 07:35] LABS: POIKILOCYTOSIS SL
[2016-10-01 12:39] LABS: URINE APPEARANCE CLEAR; URINE BILIRUBIN NEG (NEG); URINE BLOOD 1+ (NEG); URINE COLOR YELLOW; URINE GLUCOSE NEG (NEG); URINE KETONE NEG (NEG); URINE LEUKOCYTE ESTERASE NEG (NEG); URINE NITRATE NEG (NEG); URINE PROTEIN 3+ (NEG); URINE SPECIFIC GRAVITY 1.011 (1.003-1.035); URINE UROBILINOGEN 0.2 MG/DL (NEG)
[2016-10-01 12:42] LABS: URINE BACTERIA AUWI NEG (NEGATIVE); URINE SQUAMOUS EPITHELIAL CELL OCC /[HPF]; UWBCS1 AUWI 0-2 (0-5)
[2016-10-01 12:43] LABS: CULTURE INDICATED? NO
[2016-10-01 17:34] LABS: BUN/CREATININE RATIO 4.83; CALCIUM SERUM 8.1 mg/dL (8.4-10.2); CREATININE SERUM 3.1 mg/dL (0.6-1.4); GLOM FILT RATE Estimated 15.9 mL/min (>60); POTASSIUM 4.1 mmol/L (3.5-5.1)
[2016-10-02 03:22] LABS: HEMATOCRIT 25.3 % (35.0-45.0); HEMOGLOBIN 8.8 gm/dL (12.0-16.0); MEAN CELL VOLUME 92.3 FL (83-96); MEAN CORPUSCULAR HGB CONC 34.7 g/dL (30-36); MEAN PLATELET VOLUME 7.3 FL (6.5-11.5); RED BLOOD COUNT 2.74 X10e (3.90-5.30); RED CELL DISTRIBUTION WIDTH 15.9 % (11.0-15.5); WHITE BLOOD COUNT 3.8 X10e3 (4.0-10.5)
[2016-10-02 03:59] LABS: ALBUMIN SERUM 3.1 g/dL (3.5-5.0); BILIRUBIN,TOTAL 0.9 mg/dL (0.2-2.0); BUN/CREATININE RATIO 5.45; CALCIUM SERUM 8.2 mg/dL (8.4-10.2); CREATININE SERUM 3.3 mg/dL (0.6-1.4); GLOM FILT RATE Estimated 14.8 mL/min (>60); POTASSIUM 3.5 mmol/L (3.5-5.1); PROTEIN TOTAL SERUM 5.4 g/dL (6.0-8.3)
[2016-10-02 15:24] LABS: URINE CREATININE 42.1 mg/dL
[2016-10-02 15:25] LABS: BODY SURFACE AREA 1.87; U PROTIEN QUANT CALCULATION 4.17 GM/24H (0.10-0.15)
[2016-10-03 04:04] LABS: HEMATOCRIT 25.5 % (35.0-45.0); HEMOGLOBIN 8.8 gm/dL (12.0-16.0); MEAN CELL VOLUME 94.5 FL (83-96); MEAN CORPUSCULAR HEMOGLOBIN 32.6 PG (28-34); MEAN CORPUSCULAR HGB CONC 34.5 g/dL (30-36); MEAN PLATELET VOLUME 7.4 FL (6.5-11.5); RED BLOOD COUNT 2.7 X10e (3.90-5.30); RED CELL DISTRIBUTION WIDTH 16.1 % (11.0-15.5); WHITE BLOOD COUNT 4.9 X10e3 (4.0-10.5)
[2016-10-03 04:50] LABS: BUN/CREATININE RATIO 7.25; CALCIUM SERUM 8.5 mg/dL (8.4-10.2); GLOM FILT RATE Estimated 11.7 mL/min (>60); POTASSIUM 3.7 mmol/L (3.5-5.1)
[2016-10-03] MEDS ORDERED: BACTRIM DS TAB1 EACH PO (11:08)
== END 2016-10-03 14:51 | disposition home or self-care (01) | DRG 683 ==
LOC: CED 16:36 → CEDOF 23:07 → C4C 10-01 01:41 → CED 10-01 01:41 → CEDOF 10-01 01:41 → C4C 10-01 01:46
PROVIDERS: Internal Medicine; Internal Medicine Nephrology
DX: N17.0 Acute kidney failure with tubular necrosis (principal); I12.0 Hypertensive chronic kidney disease with stage 5 chronic kidney disease or end stage renal disease; I42.9 Cardiomyopathy, unspecified; E87.1 Hypo-osmolality and hyponatremia; D63.1 Anemia in chronic kidney disease; N18.6 End stage renal disease; Z99.2 Dependence on renal dialysis; E78.5 Hyperlipidemia, unspecified; G43.909 Migraine, unspecified, not intractable, without status migrainosus; Z90.710 Acquired absence of both cervix and uterus; F17.210 Nicotine dependence, cigarettes, uncomplicated; Z79.52 Long term (current) use of systemic steroids; J44.9 Chronic obstructive pulmonary disease, unspecified; E87.6 Hypokalemia; K58.9 Irritable bowel syndrome, unspecified
CPT/HCPCS: 80048; 80053; 81003; 82575; 84156; 84443; 85025; 85027; 87086; C9113; J8530; Q4081